=== PATIENT | female | born 1935 | race Caucasian/White ===

== ENCOUNTER 2017-05-12 12:04 | Outpatient (CLI) | payer MEDICARE, BC ==
[~2017-05-12] VITALS: Ht 163.8 cm; Wt 77.3 kg
--- NOTE | ~2017-05-12 | HEMODYNAMI ---
PATIENT:VIOLET FALCON MEDICAL RECORD: [id number] : 35 LOCATION:[facility] ADMISSION DATE: 05/12/17 Generatedon:05/12/201714:04 Patient name: VIOLET FALCON Patient #: [id number] SSN: DO B: 1935 Date of study: 05/12/2017 Page: Of Hemodynamic Procedure Report Patient Data Patient Demographics Procedure consent was obtained First Name: VIOLET Gender: Female Last Name: TERRIE : 1935 [facility] Initial: R Age: 81 year(s) Patient #: [id number] Race: Unknown Additional ID: [id number] Contact details Address: [address] [place] [address] [facility] State: [place] City: [place] Zip code: [address] Past Medical History Allergies: No known allergies Admission Admission Data Admission Date: 05/12/2017 Admission Time: 12:04 Procedure Procedure Types Cath Procedure Miscellaneous Procedures Moderate Sedation up to 45 minutes Peripheral Cath Diagnostic Procedure Cath Peripheral Oaoxm-Ioaekog-Ges-Off Peripheral vascular Intervention Stent Stent-Fem/Popw/plasty Procedure Description Procedure Date Procedure Date: 05/12/2017 Procedure Start Time: 13:13 Procedure End Time: 14:00 Procedure Staff Name Function Sohail Ryan MD Performing Physician Carline Trimble RT Scrub Deuce Gallagher RT Scrub Terrance Baker RN Nurse Vanessa Short RT Monitor Umer Pérez RN Clay Grinder Procedure Data Cath Procedure Fluoroscopy Diagnostic fluoroscopy Total fluoroscopy Time: time: 11.9 min 11.9 min Diagnostic fluoroscopy Total fluoroscopy dose: 223 dose: 223 mGy mGy Contrast Material Contrast Material Type Amount (ml) Isovue 300 118 Entry Location Entry Primary Successful Side Size Upsize Upsize Entry Closure Huerta ccessful Closure Location (Fr) 1 (Fr) 2 (Fr) Remarks Device Remarks Femoral Right 5 Fr 6 Fr 6 Fr Mechanical artery Long Short Compression Estimated blood loss: 10 ml Diagnostic catheters Device Type Used For End Catheter Placement Cordis Tempo 5Fr UF Abdominal catheter aortogram with runoff Procedure Complications No complications Procedure Medications Medication Administration Route Dosage 0.9% NaCl I.V. 100 ml/hr Oxygen NC 2 l/min Heparin Flush Bag added to field 2 bags (1000units/500ml NS) Versed I.V. 0.5 mg Fentanyl I.V. 25 mcg Versed I.V. 0.5 mg Fentanyl I.V. 25 mcg Heparin Bolus I.V. 7000 units Versed I.V. 0.5 mg Fentanyl I.V. 50 mcg Versed I.V. 0.5 mg Plavix P.O. 600 mg Versed I.V. 0.5 mg Hemodynamics Rest Heart Rate: 69 (bpm) Snapshots Pre Cath Intra NCS Post Cath Vital Signs Time Heart Resp SPO2 etCO2 [id number] NIBP (mmHg) Rhythm Pain Sedation Rate (ipm) (%) (mmHg) (mmHg) Status Level (bpm) 12:56:59 69 20 98 0 0 142/91(106) NSR 0 (11) 10(A) , No pain 13:01:44 67 14 96 0 0 159/63(126) NSR 0 (11) 10(A) , No pain 13:07:18 66 16 97 0 0 165/66(124) NSR 0 (11) 10(A) , No pain 13:12:05 67 15 97 0 0 162/67(119) NSR 0 (11) 10(A) , No pain 13:16:53 63 14 97 0 0 136/56(112) NSR 0 (11) 9(A) , No pain 13:21:38 64 23 97 0 0 152/60(111) NSR 0 (11) 9(A) , No pain 13:26:21 66 15 97 0 0 147/65(114) NSR 0 (11) 9(A) , No pain 13:31:05 65 14 97 0 0 154/68(116) NSR 0 (11) 9(A) , No pain 13:35:52 65 18 96 0 0 143/59(115) NSR 0 (11) 9(A) , No pain 13:40:39 65 16 96 0 0 151/56(118) NSR 0 (11) 9(A) , No pain 13:45:23 63 15 96 0 0 150/61(124) NSR 0 (11) 9(A) , No pain 13:50:08 59 15 95 0 0 136/57(108) NSR 0 (11) 9(A) , No pain 13:54:51 57 15 96 0 0 130/58(104) NSR 0 (11) 9(A) , No pain 13:59:34 60 15 97 0 0 141/63(110) NSR 0 (11) 10(A) , No pain Medications Time Medication Route Dose Verified Delivered Reason Notes Effectiveness by by 13:00:35 0.9% NaCl I.V. 100 Terrance Terrance Per physician ml/hr Samuel Baker RN RN 13:01:23 Oxygen NC 2 Terrance Terrance Per physician l/min Samuel Baker RN RN 13:02:12 Heparin Flush added 2 Terrance Terrance used for Bag to bags Samuel Baker procedure (1000units/500ml field RN RN NS) 13:07:09 Versed I.V. 0.5 Terrance Terrance for sedation mg Samuel Baker RN RN 13:07:23 Fentanyl I.V. 25 Terrance Terrance for sedation mcg Samuel Baker RN RN 13:11:38 Versed I.V. 0.5 Terrance Terrance for sedation mg Samuel Baker RN RN 13:12:00 Fentanyl I.V. 25 Terrance Terrance for sedation mcg Samuel Baker RN RN 13:31:16 Heparin Bolus I.V. 7,000 Terrance Terrance for units Samuel Baker anticoagulation RN RN 13:33:13 Versed I.V. 0.5 Terrance Terrance for sedation mg Samuel Baker RN RN 13:45:10 Fentanyl I.V. 50 Terrance Terrance for sedation mcg Samuel Baker RN RN 13:54:31 Versed I.V. 0.5 Terrance Terrance for sedation mg Samuel Baker RN RN 13:58:40 Plavix P.O. 600 Terrance Terrance for mg Samuel Baker antiplatelet RN RN therapy 13:59:54 Versed I.V. 0.5 Terrance Terrance for sedation mg Samuel Baker RN graphics intern Log Time Note 12:34:57 Procedure type changed to Cath procedure, Miscellaneous Procedures, Moderate Sedation up to 45 minutes, Peripheral Cath Diagnostic Procedure, Cath Peripheral, Pidmi-Wirjmqz-Atr-Off, Peripheral vascular Intervention, Stent, Stent-Fem/Popw/plasty 12:35:11 Time tracking: Regular hours 12:35:16 Plan of Care:Hemodynamics will remain stable., Cardiac rhythm will remain stable., Comfort level will be maintained., Respiratory function will remain adequate., Patient/ family verbilizes understanding of procedure., Procedure tolerated without complication., Recovers from procedure without complications.. 12:38:43 Umer Pérez RN sent for patient. Start room use. 12:50:44 Patient received from Pre/Post Procedure Room to CCL 1 Alert and oriented. Tansferred to table in Supine position. 12:50:44 Warm blankets applied, and kevyn hugger turned on for patient comfort. 12:50:45 Correct patient and procedure confirmed by team. 12:50:46 Signed procedure consent form obtained from patient. 12:50:47 ECG and BP/O2 sat monitors applied to patient. 12:50:48 Full Disclosure recording started 12:56:06 Vital chart was started 12:59:53 Baseline sample Acquired. 13:00:17 H&P Date Dictated: 04/18/2017 Within 30 days and on chart., H&P Addendum completed by physician on day of procedure. (MUST COMPLETE FOR ALL OUTPATIENTS). 13:00:18 Pre-procedure instructions explained to patient. 13:00:18 Pre-op teaching completed and patient verbalized understanding. 13:00:20 Family in patients room. 13:00:24 Rhythm: sinus rhythm 13:00:28 Patient NPO since Midnight. 13:00:35 0.9% NaCl 100 ml/hr I.V. was administered by Terrance Baker RN; Per physician; 13:00:35 Patient allergic to No known allergies 13:00:37 Is the patient allergic to Iodine/contrast media? No. 13:00:38 Is patient on blood thinner?No 13:00:41 Patient diabetic? No. 13:00:43 Previous problem with sedation/anesthesia? No ? 13:00:44 Snore? Yes 13:00:45 Sleep apnea? No 13:00:46 Deviated septum? No 13:00:47 Opens mouth fully? Yes 13:00:47 Sticks out tongue? Yes 13:00:49 Airway obstruction? No ? 13:00:51 Dentures? No ? 13:00:54 Pre procedure: right dorsailis pedis pulse 1+ Palpable, but thready & weak; easily obliterated 13:00:56 Pre procedure: left dorsailis pedis pulse 2+ Normal; easily identifiable; not easily obliterated 13:00:59 Patient pain scale 0/10 ?. 13:01:08 IV patent on arrival in right forearm with 0.9% NaCl at [facility]. 13:01:12 Lab results completed and on chart. 13:01:15 Bilateral groins area was prepped with chlora-prep and draped in sterile fashion 13:01:16 Alarms reviewed by R. N. 13:01:16 Sharps counted by scrub and verified by R.N. 13:01:20 Acist Syringe opened to sterile field. 13:01:20 Bag Decanter opened to sterile field. 13:01:21 Medline Cath Pack opened to sterile field. 13:01:21 Terumo 5Fr [place] Sheath opened to sterile field. 13:01:22 St Rickey 260cm J .035 wire opened to sterile field. 13:01:23 Oxygen 2 l/min NC was administered by Terrance Baker RN; Per physician; 13:01:23 Acist Hand Control opened to sterile field. 13:01:23 Acist Manifold opened to sterile field. 13:01:24 Tegaderm 4 x 4 opened to sterile field. 13:02:12 Heparin Flush Bag (1000units/500ml NS) 2 bags added to field was administered by Terrance Baker RN; used for procedure; 13:03:39 Final Timeout: patient, procedure, and site verified with staff and physician. All members of the team are in agreement. 13:03:43 Right groin site verified by team. 13:03:46 Physical assessment completed. ASA score P 2 - A patient with mild systemic disease as per Sohail Ryan MD. 13:03:50 Sedation plan: IV Moderate Sedation Versed, Fentanyl 13:05:21 Zero performed for pressure channel P1 13:07:09 Versed 0.5 mg I.V. was administered by Terrance Baker RN; for sedation; 13:07:23 Fentanyl 25 mcg I.V. was administered by Terrance Baker RN; for sedation; 13:11:38 Versed 0.5 mg I.V. was administered by Terrance Lorigan RN; for sedation; 13:12:00 Fentanyl 25 mcg I.V. was administered by Terrance Baker RN; for sedation; 13:13:45 Procedure started. 13:13:57 Local anesthetic to right femoral artery with Lidocaine 2% by Sohail Ryan MD.INITIAL ACCESS ONLY 13:18:33 A 5 Fr sheath was inserted into the Right Femoral artery 13:19:43 A Cordis Tempo 5Fr UF catheter was advanced over the wire and used for Abdominal aortogram with runoff. 13:23:00 Terumo Super Stiff Angled 260cm glide wire opened to sterile field. 13:23:13 Terumo TORQUE DEVICE PLASTIC .038 opened to sterile field. 13:23:43 SS glide wire advanced. 13:25:25 Catheter exchanged over wire. 13:25:37 Terumo 6Fr [place] Destination Sheath opened to sterile field. 13:25:37 Merit BasixCompak Inflation Kit opened to sterile field. 13:25:50 Sheath upsized to a 6 Fr Long. 13:31:16 Heparin Bolus 7,000 units I.V. was administered by Terrance Baker RN; for anticoagulation; 13:33:13 Versed 0.5 mg I.V. was administered by Terrance Baker RN; for sedation; 13:33:38 Inflation number: 1 A Cordis Powerflex Pro 5.0 x 40 x 135cm balloon was prepped and advanced across the Mid Superficial Femoral, Left, then inflated to 9 DAVE for 2:09 (min:sec). 13:37:36 Inflation number: 2 The Cordis Powerflex Pro 5.0 x 40 x 135cm balloon was reinflated across the Mid Superficial Femoral, Left, to 8 DAVE for 1:22 (min:sec). 13:40:58 Balloon removed over the wire. 13:43:18 Cordis SMART 6 X 80 X 120 stent was deployed across Mid Superficial Femoral, Left . 13:43:20 Stent catheter was removed intact over wire. 13:45:10 Fentanyl 50 mcg I.V. was administered by Terrance Baker RN; for sedation; 13:46:20 Inflation number: 3 A Cordis Powerflex Pro 5.0 X 80 X 135 balloon was prepped and advanced across the Mid Superficial Femoral, Left, then inflated to 6 DAVE for 0:39 (min:sec). 13:47:36 Inflation number: 4 The Cordis Powerflex Pro 5.0 X 80 X 135 balloon was reinflated across the Mid Superficial Femoral, Left, to 10 DAVE for 1:06 (min:sec). 13:48:45 Balloon removed over the wire. 13:52:15 Terumo 6Fr Rich[place] Sheath opened to sterile field. 13:52:54 Sheath upsized to a 6 Fr Short. 13:52:59 Sheath removed intact; hemostasis achieved with Mechanical Compression to the Right Femoral artery. 13:53:07 Procedure ended.(Physican Out) 13:53:11 Fluoroscopy time 11.90 minutes. 13:53:15 Flurop Dose total: 223 13:53:15 Fluoroscopy dose: 223 mGy 13:53:29 Contrast amount:Isovue 300 118ml. 13:53:31 Sharps counted by scrub and verified by R.N. 13:54:31 Versed 0.5 mg I.V. was administered by Terrance Baker RN; for sedation; 13:55:25 Insertion/operative site no bleeding no hematoma. 13:55:27 Post-op/insertion site Right Femoral artery dressed using a 4 x 4 and Tegaderm. 13:55:32 Post right femoral artery:stable, clean and dry 13:55:35 Post Procedure Pulses reassessed and unchanged 13:55:38 Post-procedure physical assessment completed. ASA score P 2 - A patient with mild systemic disease as per Sohail Ryan MD. 13:55:43 Post procedure rhythm: unchanged. 13:55:50 Estimated blood loss: 10 ml 13:55:52 Post procedure instruction explained to patient.Patient verbalizes understanding. 13:55:53 Patient needs reinforcement of post procedure teaching. 13:55:59 Procedure Complication : No complications 13:56:01 See physician's report for complete and final results. 13:56:18 Cordis 6Fr Exoseal opened to sterile field. 13:56:58 Procedure and supply charges have been captured, reviewed, submitted and are correct. 13:58:40 Plavix 600 mg P.O. was administered by Terrance Baker RN; for antiplatelet therapy; 13:59:32 St Rickey Femstop Arch Gold opened to sterile field. 13:59:39 Post right femoral artery:oozing 13:59:46 Femstop placed over the right femoral artery at 160 mmHg. Hemostasis achieved. 13:59:54 Versed 0.5 mg I.V. was administered by Terrance Baker RN; for sedation; 14:00:29 Vital chart was stopped 14:00:32 Report given to Pre/Post Procedure Room. 14:00:35 Patient transfered to Pre/Post Procedure Room with Stretcher. 14:00:36 Procedure ended. 14:00:36 Full Disclosure recording stopped 14:00:45 End room use (Document Last) Intervention Summary Intervention Notes Time ActionType Lesion and Equipment Action# Pressure Duration Attributes Used 13:33:38 Inflate Mid Cordis 1 9 02:09 balloon Superficial Powerflex Femoral, Pro 5.0 x Left 40 x 135cm balloon 13:37:36 Reinflate Mid Cordis 2 8 01:22 balloon Superficial Powerflex Femoral, Pro 5.0 x Left 40 x 135cm balloon 13:43:18 Deploy self Mid Cordis 1 expanding Superficial SMART 6 X stent Femoral, 80 X 120 Left stent 13:46:20 Inflate Mid Cordis 3 6 00:40 balloon Superficial Powerflex Femoral, Pro 5.0 X Left 80 X 135 balloon 13:47:36 Reinflate Mid Cordis 4 10 01:06 balloon Superficial Powerflex Femoral, Pro 5.0 X Left 80 X 135 balloon Device Usage Item Name Manufacture Quantity Catalog Hospital Part Current Minimal L ot# / Number Charge Number Stock Stock Serial# Code Acist Acist 1 [id number] 20 Syringe Medical Systems Inc Bag Microtek 1 2002S 574333 90994 [id number] 5 Fusion Smoothies Inc. Medline Cardinal 1 [id number] 293364 04976 942854 5 Cath Pack Health Terumo 5Fr Terumo 1 [id number] 285135 365725 [address] St Rickey 1 073626 106457 777156 847814 30 260cm J .035 wire Acist Hand Acist 1 72044 765313 714533 771276 5 Control Medical Systems Inc Acist Acist 1 26924 202777 751291 803933 5 Manifold Medical Systems Inc Tegaderm 4 3M 1 1626W 377338 934493 924761 5 x 4 Cordis Cardinal 1 [id number] 969389 020872 578794 10 Tempo 5Fr Health UF catheter Terumo Terumo 1 [id number] 570826 567232 458475 5 Super Stiff Angled 260cm glide wire Terumo [place] 1 TD01 932879 039832 023362 5 TORQUE Scientific DEVICE PLASTIC .038 Terumo 6Fr Terumo 1 RSR01 472271 91594 620926 5 Richwood Destination Sheath Merit Merit 1 [id number] 074517 955119 658014 15 ZumperixMolecule SynthctEasySize Medical Inflation Kit Cordis Cardinal 1 [id number] 865893 401377 138738 5 Powerflex Health Pro 5.0 x 40 x 135cm balloon Cordis Cardinal 1 [id number] 865574 262042 0 1 [id number] SMART 6 X Health 80 X 120 stent Cordis Cardinal 1 [id number] 146095 372264 5 Powerflex Health Pro 5.0 X 80 X 135 balloon Terumo 6Fr Terumo 1 [id number] 197290 133220 439656 40 [place] Sheath Cordis 6Fr Cardinal 1 EX600 681096 286042 283199 [address] Rickey 1 [id number] 852851 322686 161999 5 Femstop Arch Gold Signature Audit [place] Stage Time Signature Unsigned Intra-Procedure 05/12/2017 Vanessa 2:04:47 PM Counts RT(R) Signatures Monitor : Vanessa Signature : Counts RT Date : Time : [id number] [place] [address]
[2017-05-12] MEDS ORDERED: BAYER CHEWABLE81 MG PO (12:12)
[2017-05-12] MEDS ORDERED: LEVOXYL75 MCG PO (12:12)
[2017-05-12] MEDS ORDERED: DIOVAN HCT 320/1 TA2 PO (12:13)
[2017-05-12] MEDS ORDERED: TOPROL XL200 MG PO (12:13)
[2017-05-12] MEDS ORDERED: NIFEDIPINE ER30 MG PO (12:13)
[2017-05-12] MEDS ORDERED: NEXIUM40 MG PO (12:14)
[2017-05-12 12:23] VITALS: BP 171/59; Ht 163.8 cm; Wt 77.3 kg
[2017-05-12 12:49] LABS: ANION GAP 16.4 mmol/L (8-16); CREATININE - SERUM 1.4 mg/dL (0.6-1.3); POTASSIUM - SERUM 4.4 mmol/L (3.5-5.1)
[2017-05-12] MEDS ORDERED: PLAVIX75 MG PO (14:15)
--- NOTE | 2017-05-12 14:27 | NUR ---
RECIEVED TO ROOM VIA STRETCHER WITH FEMSTOP TO R/GROIN CDI PRESSURE AT 160. REPORTS OF ONE STENT TO THE [facility].
--- NOTE | 2017-05-12 14:30 | NUR ---
1430 VSS WITH CHEST PAIN DENIED. FEMSTOP TO R/GROIN AT 160 PRESSURE. INSTRUCTED PATIENT TO KEEP HEAD FLAT ON PILLOW WITH RLE STRAIGHT VSS
--- NOTE | 2017-05-12 14:52 | NUR ---
VSS WITH CHEST PAIN DENIED FEMSTOP REMAINS TO R/GROIN AT 160
--- NOTE | 2017-05-12 15:39 | NUR ---
PRESSURE TO FEMSTOP RELEASED TO 120 NO BLEEDING AT SITE.
--- NOTE | 2017-05-12 15:52 | NUR ---
PRESSURE LET OFF FEMSTOP SLOWLY WITH NO BLEEDING NOTED. REMAINS IN PLACE WILL MONITOR
--- NOTE | 2017-05-12 16:28 | NUR ---
RESTING QUIETLY WITH FEMSTOP IN PLACE NO PRESSURE AT SITE CHEST PAIN IS DENIED WITH VSS
--- NOTE | 2017-05-12 16:41 | NUR ---
PATIENT MOVING ABOUT RESTLESS INSTRUCTED PATIENT TO KEEP HEAD FLAT ON PILLOW WITH RLE STRAIGHT
--- NOTE | 2017-05-12 16:59 | NUR ---
R/GROIN CDI NO BLEEDING NO HEMATOMA NOTED FEMSTOP OFF WITH VSS. DAUGHTER AT BEDSIDE VERBAL AND WRITTEN DISCHARGE GONE OVER WITH FAMILY.
--- NOTE | 2017-05-12 17:28 | NUR ---
REPOSITIONED TO SITTING WITH HOB UP 45 DEGREES. CHEST PAIN IS DENIED R/GROIN CDI NO BLEEDING NO HEMATOMA NOTED. PIV REMOVED WITH DRESSING APPLIED
--- NOTE | 2017-05-12 17:38 | NUR ---
PATIENT DRESSED AND READY FOR DISCHARGE R/GROIN CDI WITH CHEST PAIN DENIED. LEFT VIA WC TO PARKING FOR TRANSPORT HOME
== END 2017-05-12 17:52 ==
LOC: D.CATH 12:04
PROVIDERS: Internal Medicine Cardiovascular Disease
DX: I70.213 Atherosclerosis of native arteries of extremities with intermittent claudication, bilateral legs (principal); I10 Essential (primary) hypertension; E78.5 Hyperlipidemia, unspecified; Z01.812 Encounter for preprocedural laboratory examination

== ENCOUNTER → 2017-07-02 10:34 | Outpatient (CLI) | payer MEDICARE, BC ==
--- NOTE | ~2017-07-02 | HEMODYNAMI ---
PATIENT:VIOLET FALCON MEDICAL RECORD: [id number] : 35 LOCATION:[facility] ADMISSION DATE: 07/02/17 Generatedon:07/02/201714:18 Patient name: VIOLET FALCON Patient #: [id number] SSN: DO B: 1935 Date of study: 07/02/2017 Page: Of Hemodynamic Procedure Report Patient Data Patient Demographics Procedure consent was obtained First Name: VIOLET Gender: Female Last Name: TERRIE : 1935 Middle Initial: R Age: 82 year(s) Patient #: [id number] Race: Unknown Additional ID: [id number] Contact details Address: [address] [place] [address] [employer] [facility] State: [place] City: [place] Zip code: [address] Past Medical History Allergies: No known allergies Admission Admission Data Admission Date: 07/02/2017 Admission Time: 10:34 Procedure Procedure Types Cath Procedure Peripheral Cath Diagnostic Procedure Abd/Extremity Extremities Right Lower Ext Arterio Peripheral vascular Intervention Atherectomy Atherectomy Fem/Pop w/Plasty Procedure Description Procedure Date Procedure Date: 07/02/2017 Procedure Start Time: 13:22 Procedure End Time: 14:17 Procedure Staff Name Function Sohail Ryan MD Performing Physician Carline Trimble RT Scrub Carolyn Castro RN Nurse Deuce Gallagher RT Monitor Umer Pérez RN Nurse Procedure Data Cath Procedure Fluoroscopy Diagnostic fluoroscopy Total fluoroscopy Time: 15 time: 15 min min Diagnostic fluoroscopy Total fluoroscopy dose: 256 dose: 256 mGy mGy Contrast Material Contrast Material Type Amount (ml) Isovue 300 38 Entry Location Entry Primary Successful Side Size Upsize Upsize Entry Closure Huerta ccessful Closure Location (Fr) 1 (Fr) 2 (Fr) Remarks Device Remarks Femoral Left 6 Fr 6 Fr 6 Fr Exoseal artery Short Long Short Femoral Left 5 Fr Manual vein Compression Estimated blood loss: 10 ml Diagnostic catheters Device Type Used For End Catheter Placement Diagnostic Infinity 5Fr Procedure IM catheter Procedure Complications No complications Procedure Medications Medication Administration Route Dosage Oxygen NC 2 l/min Heparin Flush Bag added to field 2 bags (1000units/500ml NS) 0.9% NaCl I.V. 100 ml/hr Fentanyl I.V. 50 mcg Versed I.V. 1 mg Viperslide Mix(5mg added to field 1 bags Verapamil/5mg Nitro/20cc Viperslide/100cc Bag NS) Fentanyl I.V. 50 mcg Versed I.V. 1 mg Heparin Bolus I.V. 7000 units Hemodynamics Rest Heart Rate: 56 (bpm) Snapshots Pre Cath Intra NCS Post Cath Vital Signs Time Heart Resp SPO2 etCO2 NIBP (mmHg) Rhythm Pain Sedation Rate (ipm) (%) (mmHg) Status Level (bpm) 13:07:02 58 20 97 0 159/68(138) NSR 0 (11) 10(A) , No pain 13:12:12 73 21 98 0 164/78(128) NSR 0 (11) 10(A) , No pain 13:16:38 64 11 96 0 172/63(120) NSR 0 (11) 10(A) , No pain 13:21:02 57 14 90 0 128/58(111) NSR 0 (11) 10(A) , No pain 13:25:18 62 21 99 27.9 134/59(113) NSR 0 (11) 9(A) , No pain 13:29:32 56 16 100 29.4 150/66(120) NSR 0 (11) 9(A) , No pain 13:33:40 56 18 98 0 115/57(91) NSR 0 (11) 9(A) , No pain 13:37:52 53 18 97 6 101/53(81) NSR 0 (11) 9(A) , No pain 13:42:00 53 17 98 11.3 117/51(91) NSR 0 (11) 9(A) , No pain 13:46:11 56 17 98 0 108/44(69) NSR 0 (11) 9(A) , No pain 13:50:24 54 17 98 9.8 94/45(71) NSR 0 (11) 9(A) , No pain 13:54:33 56 17 97 9.8 107/39(86) NSR 0 (11) 9(A) , No pain 13:58:43 57 18 97 11.3 116/54(91) NSR 0 (11) 9(A) , No pain 14:02:53 57 18 97 27.9 132/58(97) NSR 0 (11) 9(A) , No pain 14:07:12 58 17 97 24.1 131/53(96) NSR 0 (11) 9(A) , No pain 14:11:27 57 18 98 28.6 121/60(100) NSR 0 (11) 9(A) , No pain 14:15:37 57 13 98 29.4 129/62(83) NSR 0 (11) 9(A) , No pain Medications Time Medication Route Dose Verified Delivered Reason Notes Effectiveness by by 13:12:53 Oxygen NC 2 Sohail Umer l/min Connor Pérez RN 13:13:18 Heparin Flush added 2 Sohail Umer used for Bag to bags Connor Pérez RN procedure (1000units/500ml field NS) 13:13:29 0.9% NaCl I.V. 100 Sohail Umer Per physician ml/hr Connor Pérez RN 13:21:42 Fentanyl I.V. 50 Sohail Umer for sedation mcg Connor Pérez RN 13:21:48 Versed I.V. 1 mg Sohail Umer for sedation Connor Pérez RN 13:23:31 Viperslide added 1 Sohail Umer used for Mix(5mg to bags Connor Pérez RN procedure Verapamil/5mg field Nitro/20cc Viperslide/100cc Bag NS) 13:29:22 Fentanyl I.V. 50 Sohail Umer for sedation mcg Connor Pérez RN 13:29:27 Versed I.V. 1 mg Sohail Umer for sedation Connor Pérez RN 13:33:49 Heparin Bolus I.V. 7000 Sohail Umer for units Connor Pérez RN anticoagulation Procedure Log Time Note 12:45:13 Deuce Gallagher RT(R) sent for patient. Start room use. 13:01:14 Time tracking: Regular hours 13:01:18 Plan of Care:Hemodynamics will remain stable., Cardiac rhythm will remain stable., Comfort level will be maintained., Respiratory function will remain adequate., Patient/ family verbilizes understanding of procedure., Procedure tolerated without complication., Recovers from procedure without complications.. 13:02:10 Patient received from Pre/Post Procedure Room to CCL 1 Alert and oriented. Tansferred to table in Supine position. 13:02:11 Warm blankets applied, and kevyn hugger turned on for patient comfort. 13:02:12 Correct patient and procedure confirmed by team. 13:02:13 Signed procedure consent form obtained from patient. 13:02:14 ECG and BP/O2 sat monitors applied to patient. 13:05:47 Vital chart was started 13:05:48 Baseline sample Acquired. 13:05:51 Rhythm: sinus rhythm 13:05:52 Full Disclosure recording started 13:06:25 H&P Date Dictated: 06/20/2017 Within 30 days and on chart., H&P Addendum completed by physician on day of procedure. (MUST COMPLETE FOR ALL OUTPATIENTS). 13:06:27 Pre-procedure instructions explained to patient. 13:06:27 Pre-op teaching completed and patient verbalized understanding. 13:06:31 Family in patients room. 13:06:32 Patient NPO since Midnight. 13:06:34 Is the patient allergic to Iodine/contrast media? No. 13:06:35 Is patient on blood thinner?Yes 13:06:38 ACC The patient was administered the following blood thiners within the last 24 hours: ACCPlavix 13:07:02 Patient diabetic? No. 13:12:53 Oxygen 2 l/min NC was administered by Umer Pérez RN; ; 13:13:18 Heparin Flush Bag (1000units/500ml NS) 2 bags added to field was administered by Umer Pérez RN; used for procedure; 13:13:29 0.9% NaCl 100 ml/hr I.V. was administered by Umer Pérez RN; Per physician; 13:13:58 Previous problem with sedation/anesthesia? No ? 13:13:59 Snore? Yes 13:14:00 Sleep apnea? No 13:14:01 Deviated septum? No 13:14:02 Opens mouth fully? Yes 13:14:02 Sticks out tongue? Yes 13:14:04 Airway obstruction? No ? 13:14:05 Dentures? No ? 13:14:08 Pre procedure: left dorsailis pedis pulse 1+ Palpable, but thready & weak; easily obliterated 13:15:35 Patient pain scale 0/10 ?. 13:15:41 IV patent on arrival in left forearm with 0.9% NaCl at [facility]. 13:15:43 Lab results completed and on chart. 13:15:47 Left groin area was prepped with chlora-prep and draped in sterile fashion 13:15:48 Alarms reviewed by R. N. 13:15:48 Sharps counted by scrub and verified by R.N. 13:15:49 --------ALL STOP TIME OUT------ 13:15:49 Final Timeout: patient, procedure, and site verified with staff and physician. All members of the team are in agreement. 13:15:52 Left groin site verified by team. 13:15:55 Physical assessment completed. ASA score P 2 - A patient with mild systemic disease as per Sohail Ryna MD. 13:15:58 Sedation plan: IV Moderate Sedation Versed, Fentanyl 13:16:13 Use device set Femoral PCI 13:16:14 Tegaderm 4 x 4 opened to sterile field. 13:16:15 Acist Manifold opened to sterile field. 13:16:16 Acist Syringe opened to sterile field. 13:16:17 Acist Hand Control opened to sterile field. 13:16:17 Bag Decanter opened to sterile field. 13:16:17 Medline Cath Pack opened to sterile field. 13:16:18 Terumo 6Fr Bolckow Sheath opened to sterile field. 13:16:19 St Rickey 260cm J .035 wire opened to sterile field. 13:16:19 Merit BasixCompak Inflation Kit opened to sterile field. 13:17:00 Terumo ANGLE 260cm glide wire opened to sterile field. 13:17:05 Terumo 6Fr Bolckow Destination Sheath opened to sterile field. 13:17:12 VIPER .014 335 CM guide wire opened to sterile field. 13:17:26 Diamondback 360 1.50 SOLID Atherectomy catheter opened to sterile field. 13:17:53 Cook 18G 7cm Percutaneous Entry needle opened to sterile field. 13:21:42 Fentanyl 50 mcg I.V. was administered by Umer Pérez RN; for sedation; 13:21:48 Versed 1 mg I.V. was administered by Umer Pérez RN; for sedation; 13:22:04 Procedure started. 13:22:09 Local anesthetic to left femerol artery with Lidocaine 2% by Sohail Ryan MD.INITIAL ACCESS ONLY 13:23:31 Viperslide Mix(5mg Verapamil/5mg Nitro/20cc Viperslide/100cc Bag NS) 1 bags added to field was administered by Umer Pérez RN; used for procedure; 13:27:28 Terumo 5Fr Bolckow Sheath opened to sterile field. 13:27:48 A 5 Fr sheath was inserted into the Left Femoral vein 13:28:06 Baseline sample Acquired. 13:28:18 A 6 Fr Short sheath was inserted into the Left Femoral artery 13:28:30 A Diagnostic Infinity 5Fr IM catheter was advanced over the wire and used for Procedure. 13:28:39 Jenkins wire advanced. 13:29:22 Fentanyl 50 mcg I.V. was administered by Umer Pérez RN; for sedation; 13:29:25 Wire advanced around the horn and down the Right SFA. 13:29:27 Versed 1 mg I.V. was administered by Umer Pérez RN; for sedation; 13:31:03 Terumo TORQUE DEVICE PLASTIC .038 opened to sterile field. 13:31:27 Catheter exchanged over wire. 13:31:36 Sheath upsized to a 6 Fr Long. 13:33:49 Heparin Bolus 7000 units I.V. was administered by Umer Pérez RN; for anticoagulation; 13:35:58 Viper wire advanced. 13:37:18 Wire advanced across lesion. 13:40:34 Diamondback advanced. 13:45:50 Multiple passes made to the mid and distal right SFA with the diamondback at low, med, and high.. 13:56:57 Diamondback removed over the wire. 13:59:31 Inflation number: 1 A Saber 5.0 X 150 X 150 balloon was prepped and advanced across the Mid Superficial Femoral, Right, then inflated to 5 DAVE for 1:30 (min:sec). 13:59:51 Multiple inflations made at 5 Atms. 14:06:26 Balloon removed over the wire. 14:06:26 Wire removed. 14:06:38 Sheath upsized to a 6 Fr Short. 14:06:47 Cordis 6Fr Exoseal opened to sterile field. 14:07:43 Sheath removed intact; hemostasis achieved with Exoseal to the Left Femoral artery. 14:07:46 Procedure ended.(Physican Out) 14:10:13 Sheath removed intact; hemostasis achieved with Manual Compression to the Left Femoral vein. 14:10:19 Fluoroscopy time 15.00 minutes. 14:10:24 Fluoroscopy dose: 256 mGy 14:10:24 Flurop Dose total: 256 14:11:01 Contrast amount:Isovue 300 38ml. 14:11:03 Sharps counted by scrub and verified by R.N. 14:11:06 Insertion/operative site no bleeding no hematoma. 14:11:10 Post-op/insertion site Left Femoral artery dressed using a 4 x 4 and Tegaderm. 14:11:11 Post Procedure Pulses reassessed and unchanged 14:11:14 Post-procedure physical assessment completed. ASA score P 2 - A patient with mild systemic disease as per Sohail Ryan MD. 14:11:16 Post procedure rhythm: unchanged. 14:11:19 Estimated blood loss: 10 ml 14:11:21 Post procedure instruction explained to patient.Patient verbalizes understanding. 14:11:21 Patient needs reinforcement of post procedure teaching. 14:13:00 Procedure type changed to Cath procedure, Peripheral Cath Diagnostic Procedure, Abd/Extremity, Extremities, Right Lower Ext Arterio, Peripheral vascular Intervention, Atherectomy, Atherectomy Fem/Pop w/Plasty 14:13:03 Procedure Complication : No complications 14:15:29 Procedure and supply charges have been captured, reviewed, submitted and are correct. 14:17:15 Vital chart was stopped 14:17:15 See physician's report for complete and final results. 14:17:18 Report given to Pre/Post Procedure Room. 14:17:33 Patient transfered to Pre/Post Procedure Room with Stretcher. 14:17:35 Procedure ended. 14:17:35 Full Disclosure recording stopped 14:17:41 End room use (Document Last) Intervention Summary Intervention Notes Time ActionType Lesion and Equipment Action# Pressure Duration Attributes Used 13:59:31 Inflate Mid Saber 5.0 1 5 01:30 balloon Superficial X 150 X Femoral, 150 Right balloon Device Usage Item Name Manufacture Quantity Catalog Number Hospital Part Current Minimal Lot# / Charge Number Stock Stock Serial# Code Tegaderm 4 x 3M 1 1626 478397 979480 298411 5 4 Acist Acist Medical 1 53894 013589 598674 880985 5 Manifold Systems Inc Acist Acist Medical 1 01103 199089 973347 968281 20 Syringe Systems Inc Acist Hand Acist Medical 1 22173 208718 214983 986761 5 Control Systems Inc Bag Decanter Microtek 1 2002S 569744 31655 557950 5 Medical Inc. Medline Cath Cardinal 1 [id number] 321188 64052 011322 5 Pack Health Terumo 6Fr Terumo 1 [id number] 724538 569988 761277 [address] St Rickey 1 [id number] 846923 090361 668672 30 260cm J .035 wire [facility] 1 [id number] 903053 557311 247959 15 BasixCompak Inflation Kit Terumo ANGLE Terumo 1 [id number] 422656 891788 051888 5 260cm glide wire Terumo 6Fr Terumo 1 RSR01 918929 33815 067353 5 Bolckow Destination Sheath VIPER .014 Cardiovascular 1 [id number] 977648 007263 5 335 CM guide systems wire Diamondback Cardiovascular 1 [id number] 870532 129506 5 360 1.50 systems SOLID Atherectomy catheter Cook 18G 7cm Cook [facility] 1 [id number] 747284 48792 254870 5 Percutaneous Entry needle Terumo 5Fr Terumo 1 [id number] 308180 783510 546182 40 Bolckow Sheath Diagnostic Cardinal 1 [id number] 917194 964299 172890 5 Infinity 5Fr Health IM catheter Terumo Maxie 1 TD01 950586 366054 915302 5 TORQUE Scientific DEVICE PLASTIC .038 Saber 5.0 X Cardinal 1 [id number] 836477 944522 5 150 X 150 Health balloon Cordis 6Fr Cardinal 1 EX600 428423 803832 701785 10 [facility] Signature Audit [place] Stage Time Signature Unsigned Intra-Procedure 07/02/2017 Deuce Gallagher 2:18:12 PM RT(R) Signatures Monitor : Deuce Gallagher RT Signature : Date : Time : [place] [id number] [place] [address]
[~2017-07-02 10:34] MED LIST: BAYER CHEWABLE81 MG PO; DIOVAN HCT 320/1 TA2 PO; LEVOXYL75 MCG PO; NEXIUM40 MG PO; NIFEDIPINE ER30 MG PO; PLAVIX75 MG PO; TOPROL XL200 MG PO
[2017-07-02 10:55] VITALS: BP 171/44; BMI 28.8
[2017-07-02 11:15] LABS: BASOPHILS 0.6 % (0-2); EOSINOPHILS 4.3 % (0-7); HEMATOCRIT 41.8 % (36.0-48.0); IMMATURE GRANULOCYTES 0.1 % (0-5); LYMPHOCYTES 28.1 % (15-50); MCH 30.5 pg (26.0-34.0); MCHC 33.5 g/dL (31.0-37.0); MCV 91.1 fL (80.0-100.0); MONOCYTES 13.6 % (2-11); NEUTROPHILS 53.3 % (40-80); PLATELET COUNT 210 10x3/uL (130-400); RBC 4.59 10x6/uL (4.00-5.40); RDW 13.7 % (11.5-14.5); WBC 6.9 10x3/uL (4.8-10.8)
[2017-07-02 11:30] LABS: ANION GAP 15.8 mmol/L (8-16); CALCIUM 9.7 mg/dL (8.5-10.1); CARBON DIOXIDE 25.2 mmol/L (21.0-32.0); CREATININE - SERUM 1.5 mg/dL (0.6-1.3)
--- NOTE | 2017-07-02 14:30 | NUR ---
1430 RECIEVED TO ROOM VIA STRETCHER FROM PUNCH CARD OPERATOR WITH 6 FR EXOSEAL L/GROIN CDI NO BLEEDING NO HEMATOMA NOTED. REPORTS OF BALLOON TO THE R/SFA VSS WITH PAIN DENIED INSTRUCTED PATIENT TO KEEP HEAD FLAT ON PILLOW WITH LLE STRAIGHT
--- NOTE | 2017-07-02 14:45 | NUR ---
1445 VSS WITH L/GROIN CDI NO BLEEDING NO HEMATOMA NOTED. VSS WITH CHEST PAIN DENIED
--- NOTE | 2017-07-02 15:04 | NUR ---
RESTING QUIETLY WITH EYES CLOSED. NO DISTRESS L/GROIN REMAINS STABLE
--- NOTE | 2017-07-02 15:30 | NUR ---
L/GROIN CDI NO BLEEDING NO HEMATOMA NOTED. VSS WITH PAIN DENIED. SANDWICH AND SODA TO BEDSIDE FAMILY PRESENT TO ASSIST
--- NOTE | 2017-07-02 16:44 | NUR ---
PATIENT SLEEPING QUIETLY WITH NO DISTRESS NOTED. L/GROIN CDI NO BLEEDING NO HEMATOMA NOTED. FAMILY AT SIDE
--- NOTE | 2017-07-02 17:18 | NUR ---
L/GROIN REMAINS CDI WITH VSS. VERBAL AND WRITTEN DISCHARGE GONE OVER WITH PATIENT AND FAMILY ALL VERBALIZED UNDERSTANDING.
--- NOTE | 2017-07-02 17:47 | NUR ---
REPOSITIONED TO SITTING WITH HOB UP 30 DEGREES FOR COMFORT. L/GROIN CDI NO BLEEDING NO HEMATOMA NOTED. FAMILY AT SIDE
--- NOTE | 2017-07-02 18:01 | NUR ---
PIV REMOVED WITH DRESSING APPLIED. L/GROIN CDI WITH VSS AND CHEST PAIN DENIED.
--- NOTE | 2017-07-02 18:21 | NUR ---
L/GROIN REMAINS CDI NO BLEEDING NO HEMATOMA NOTED. PATIENT UP TO GET DRESSED FOR DISCHARGE. LEFT VIA WC TO PARKING FOR FAMILY TO DRIVE HOME
== END | disposition home or self-care (01) ==
LOC: D.CATH 10:34
PROVIDERS: Internal Medicine Cardiovascular Disease
DX: I70.211 Atherosclerosis of native arteries of extremities with intermittent claudication, right leg (principal); Z01.812 Encounter for preprocedural laboratory examination

== ENCOUNTER → 2018-01-07 10:25 | Outpatient (CLI) | payer MEDICARE, BC, MEDICAID ==
[~2018-01-07] VITALS: Ht 163.8 cm; Wt 74.5 kg
--- NOTE | ~2018-01-07 | HEMODYNAMI ---
PATIENT:VIOLET FALCON MEDICAL RECORD: [id number] : 35 LOCATION:[facility] ADMISSION DATE: 01/07/18 Generatedon:01/07/201814:02 Patient name: VIOLET FALCON Patient #: [id number] SSN: DO B: 1935 Date of study: 01/07/2018 Page: Of Hemodynamic Procedure Report Patient Data Patient Demographics Procedure consent was obtained First Name: VIOLET Gender: Female Last Name: TERRIE : 1935 Middle Initial: R Age: 82 year(s) Patient #: [id number] Race: Unknown Additional ID: [id number] Contact details Address: [address] [place] [address] [employer] [facility] State: [place] City: [place] Zip code: [address] Past Medical History Allergies: No known allergies Admission Admission Data Admission Date: 01/07/2018 Admission Time: 10:25 Admit Source: Other Lab Results Lab Result Date: 01/07/2018 Lab Result Time: 11:28 Biochemistry Name Units Result Min Max BUN mg/dl 31 --(----)-* 7 18 Creatinine mg/dl 1.5 --(----)-* 0.6 1.3 CBC Name Units Result Min Max Hematocrit % 39 *-(----)-- 42 54 Hemoglobin g/dl 13.4 -*(----)-- 13.5 17.5 Procedure Procedure Types Cath Procedure Diagnostic Procedure Sedation Charges Moderate Sedation up to 30 minutes Peripheral Cath Diagnostic Procedure Cath Peripheral Ywjqj-Qejwkls-Vqa-Off Peripheral vascular Intervention Angioplasty Angioplasty Fem/Pop Procedure Description Procedure Date Procedure Date: 01/07/2018 Procedure Start Time: 13:12 Procedure End Time: 14:01 Procedure Staff Name Function Sohail Napier MD Performing Physician Freddy Rascon RT Monitor Carolyn Castro RN Nurse Vanessa Short RT Scrub Procedure Data Cath Procedure Fluoroscopy Diagnostic fluoroscopy Total fluoroscopy Time: time: 10.4 min 10.4 min Diagnostic fluoroscopy Total fluoroscopy dose: 268 dose: 268 mGy mGy Contrast Material Contrast Material Type Amount (ml) Isovue 370 94 Entry Location Entry Primary Successful Side Size Upsize 1 Upsize Entry Closure Successful Closure Location (Fr) (Fr) 2 (Fr) Remarks Device Remarks Femoral Left 5 Fr Manual vein Compressio n Femoral Right 5 Fr 6 Fr 6 Fr Exoseal artery Mid-Length Short Estimated blood loss: 10 ml Diagnostic catheters Device Type Used For End Catheter Placement DIAGNOSTIC UF 5Fr Procedure catheter ([id number]) Procedure Complications No complications Procedure Medications Medication Administration Route Dosage Oxygen NC 2 l/min Lidocaine 2% added to field 20 Heparin Flush Bag added to field 2 bags (1000units/500ml NS) 0.9% NaCl I.V. 100 ml/hr Versed I.V. 1 mg Fentanyl I.V. 50 mcg Versed I.V. 1 mg Fentanyl I.V. 50 mcg Versed I.V. 0.5 mg Fentanyl I.V. 25 mcg Heparin Bolus I.V. 6500 units Hemodynamics Rest HGB: 13.4 (g/dl) Heart Rate: 73 (bpm) Snapshots Pre Cath Intra NCS Post Cath Vital Signs Time Heart Resp SPO2 etCO2 NIBP (mmHg) Rhythm Pain Sedation Rate (ipm) (%) (mmHg) Status Level (bpm) 13:01:06 63 30 97 0 No Cuff NSR 0 (11) 10(A) , No pain 13:03:33 65 12 97 37.4 176/67(128) NSR 0 (11) 10(A) , No pain 13:08:24 63 15 94 41.1 146/60(107) NSR 0 (11) 10(A) , No pain 13:13:03 58 16 94 3.7 119/66(87) NSR 0 (11) 10(A) , No pain 13:17:45 59 15 94 0 128/54(104) NSR 0 (11) 9(A) , No pain 13:22:28 57 13 96 0 130/56(104) NSR 0 (11) 9(A) , No pain 13:27:09 59 15 96 0 118/55(79) NSR 0 (11) 9(A) , No pain 13:31:51 55 15 96 43.3 86/53(76) NSR 0 (11) 9(A) , No pain 13:36:28 56 15 94 49.3 96/46(89) NSR 0 (11) 9(A) , No pain 13:41:09 55 23 93 45.5 103/42(61) NSR 0 (11) 9(A) , No pain 13:45:47 55 25 94 41.8 105/50(71) NSR 0 (11) 9(A) , No pain 13:50:28 54 19 94 40.3 84/39(72) NSR 0 (11) 9(A) , No pain 13:55:37 57 17 94 43.3 115/54(97) NSR 0 (11) 9(A) , No pain 14:00:17 59 12 94 41.1 119/65(82) NSR 0 (11) 9(A) , No pain Medications Time Medication Route Dose Verified Delivered Reason Notes Effectiveness by by 13:04:28 Oxygen NC 2 Sohail Buffie used for l/min Connor Castro RN procedure 13:04:36 Lidocaine 2% added 20ml Sohail Sohail for local to vial Connor Napier MD anesthetic field 13:04:41 Heparin Flush added 2 Sohail Sohail used for Bag to bags Connor Napier MD procedure (1000units/500ml field NS) 13:04:50 0.9% NaCl I.V. 100 Sohail Buffie Per physician ml/hr Connor Castro RN 13:11:39 Versed I.V. 1 mg Sohail Buffie for sedation Connor Castro RN 13:11:46 Fentanyl I.V. 50 Sohail Buffie for sedation mcg Connor Castro RN 13:16:13 Versed I.V. 1 mg Sohail Buffie for sedation Connor Castro RN 13:16:16 Fentanyl I.V. 50 Sohail Buffie for sedation mcg Connor Castro RN 13:23:20 Versed I.V. 0.5 Sohail Buffie for sedation mg Connor Castro RN 13:23:25 Fentanyl I.V. 25 Sohail Buffie for sedation mcg Connor Castro RN 13:45:31 Heparin Bolus I.V. 6,500 Sohail Buffie for verifi ed units Connor Castro RN anticoagulation with dr napier Procedure Log Time Note 12:46:36 Admit Source: Other 12:46:37 Diagnostic Cath status Elective 12:46:39 Time tracking: Regular hours (M-F 7:00 - 5:00) 12:46:42 Plan of Care:Hemodynamics will remain stable., Cardiac rhythm will remain stable., Comfort level will be maintained., Respiratory function will remain adequate., Patient/ family verbilizes understanding of procedure., Procedure tolerated without complication., Recovers from procedure without complications.. 12:46:49 H&P Date Dictated: 12/19/2017 Within 30 days and on chart., H&P Addendum completed by physician on day of procedure. (MUST COMPLETE FOR ALL OUTPATIENTS). 12:46:52 Freddy Rascon RT(R) sent for patient. Start room use. 12:53:13 Patient received from Pre/Post Procedure Room to CCL 1 Alert and oriented. Tansferred to table in Supine position. 12:53:14 Warm blankets applied, and kevyn hugger turned on for patient comfort. 12:53:15 Correct patient and procedure confirmed by team. 12:53:16 Signed procedure consent form obtained from patient. 12:53:17 ECG and BP/O2 sat monitors applied to patient. 12:53:18 Full Disclosure recording started 12:58:59 Vital chart was started 13:04:28 Oxygen 2 l/min NC was administered by Carolyn Castro RN; used for procedure; 13:04:36 Lidocaine 2% 20ml vial added to field was administered by Sohail Napier MD; for local anesthetic; 13:04:41 Heparin Flush Bag (1000units/500ml NS) 2 bags added to field was administered by Sohail Napier MD; used for procedure; 13:04:50 0.9% NaCl 100 ml/hr I.V. was administered by Carolyn Castro RN; Per physician; 13:06:08 Baseline sample Acquired. 13:06:17 Baseline sample Acquired. 13:06:21 Rhythm: sinus rhythm 13:06:25 Pre-procedure instructions explained to patient. 13:06:25 Pre-op teaching completed and patient verbalized understanding. 13:06:27 Family in waiting room. 13:06:29 Patient NPO since Midnight. 13:06:34 Patient allergic to No known allergies 13:06:36 Is the patient allergic to Iodine/contrast media? No. 13:06:37 Is patient on blood thinner?Yes 13:06:39 ACC The patient was administered the following blood thiners within the last 24 hours: ACCPlavix 13:06:41 Patient diabetic? No. 13:06:44 Previous problem with sedation/anesthesia? No ? 13:06:46 Snore? Yes 13:06:47 Sleep apnea? Yes 13:06:48 Deviated septum? No 13:06:50 Opens mouth fully? Yes 13:06:50 Sticks out tongue? Yes 13:06:52 Airway obstruction? No ? 13:06:54 Dentures? No ? 13:08:16 Pre procedure: right dorsailis pedis pulse Doppler 13:08:18 Pre procedure: left dorsailis pedis pulse 2+ Normal; easily identifiable; not easily obliterated 13:08:21 Patient pain scale 0/10 ?. 13:08:26 IV patent on arrival in right antecubital with 0.9% NaCl at [facility]. 13:09:38 Lab results completed and on chart. 13:09:41 Bilateral groins area was prepped with chlora-prep and draped in sterile fashion 13:09:42 Alarms reviewed by R. N. 13:09:42 Sharps counted by scrub and verified by R.N. 13:09:45 ACIST Syringe (25464) opened to sterile field. 13:09:45 Bag Decanter (2002S) opened to sterile field. 13:09:46 Medline Cath Pack ([id number]) opened to sterile field. 13:09:48 ACIST Manifold (63625) opened to sterile field. 13:09:48 ACIST Hand Control (50548) opened to sterile field. 13:09:49 Tegaderm 4 x 4 (1626W) opened to sterile field. 13:09:50 SHEATH Prelude 5Fr 0.035 (QYN-3W-23-035) opened to sterile field. 13:09:53 DIAGNOSTIC WIRE .035 260cm J wire (419783) opened to sterile field. 13:10:00 Physician arrived 13:10:00 --------ALL STOP TIME OUT------ 13:10:01 Final Timeout: patient, procedure, and site verified with staff and physician. All members of the team are in agreement. 13:10:03 Bilateral groins site verified by team. 13:10:05 Physical assessment completed. ASA score P 2 - A patient with mild systemic disease as per Sohail Napier MD. 13:10:07 Sedation plan: IV Moderate Sedation Medication:Versed, Fentanyl 13:11:39 Versed 1 mg I.V. was administered by Carolyn Castro RN; for sedation; 13:11:46 Fentanyl 50 mcg I.V. was administered by Carolyn Castro RN; for sedation; 13:12:40 Procedure started. 13:12:44 Local anesthetic to left femerol artery with Lidocaine 2% by Sohail Napier MD.INITIAL ACCESS ONLY 13:13:01 Zero performed for pressure channel P1 13:16:13 Versed 1 mg I.V. was administered by Carolyn Castro RN; for sedation; 13:16:16 Fentanyl 50 mcg I.V. was administered by Carolyn Castro RN; for sedation; 13:21:09 Lab Result : BUN 31 mg/dl 13:21:09 Lab Result : Creatinine 1.5 mg/dl 13:21:09 Lab Result : Hemoglobin 13.4 g/dl 13:21:09 Lab Result : Hematocrit 39 % 13:23:20 Versed 0.5 mg I.V. was administered by Carolyn Castro RN; for sedation; 13:23:25 Fentanyl 25 mcg I.V. was administered by Carolyn Castro RN; for sedation; 13:30:53 A 5 Fr sheath was inserted into the Left Femoral vein 13:31:04 SHEATH Prelude 5Fr 0.035 (SXF-8I-12-035) opened to sterile field. 13:32:48 A 5 Fr sheath was inserted into the Right Femoral artery 13:33:36 A DIAGNOSTIC UF 5Fr catheter ([id number]) was advanced over the wire and used for Procedure. 13:34:32 Abdominal angiogram w/ runoff was performed. 13:34:34 Left leg runoff performed. 13:35:01 Right leg runoff performed. 13:36:33 SHEATH 6FR Destination (RSR01) opened to sterile field. 13:37:02 INFLATOR Merit BasixCompak (GB6618) opened to sterile field. 13:37:15 SHEATH Prelude 6Fr 0.035 (AKX-9W-72-035) opened to sterile field. 13:38:53 J wire advance around horn for sheath exchange. 13:39:02 Sheath upsized to a 6 Fr Mid-Length. 13:42:19 GLIDE WIRE Super Stiff Angled 260cm ([id number]) opened to sterile field. 13:42:34 glide wire advanced. 13:42:45 TORQUE DEVICE PLASTIC .038 ( TD01) opened to sterile field. 13:45:31 Heparin Bolus 6,500 units I.V. was administered by Carolyn Castro RN; for anticoagulation; verified with dr napier 13:46:16 Wire advanced across lesion. 13:50:03 Inflate balloon Inflation number: 1 A POWERFLEX PRO 5.0 X 100 X 135 balloon ([id number]) was prepped and advanced across the Mid Superficial Femoral, Right, then inflated to 4 DAVE for 2:09 (min:sec). 13:54:15 Balloon removed over the wire. 13:54:15 Wire removed. 13:54:58 EXOSEAL 6Fr (EX600) opened to sterile field. 13:55:09 Sheath upsized to a 6 Fr Short. 13:55:23 Sheath removed intact; hemostasis achieved with Exoseal to the Right Femoral artery. 13:55:35 Sheath removed intact; hemostasis achieved with Manual Compression to the Left Femoral vein. 13:55:49 Procedure ended.(Physican Out) 13:56:42 Fluoroscopy time 10.40 minutes. 13:56:45 Flurop Dose total: 268 13:56:45 Fluoroscopy dose: 268 mGy 13:56:50 Contrast amount:Isovue 370 94ml. 13:56:51 Sharps counted by scrub and verified by R.N. 13:57:30 Insertion/operative site no bleeding no hematoma. 13:57:33 Post-op/insertion site Left Femoral artery dressed using a 4 x 4 and Tegaderm. 13:57:39 Post left femerol artery:stable, soft, clean and dry 13:57:44 Post-op/insertion site Left Femoral vein dressed using a 4 x 4 and Tegaderm. 13:57:48 Post left femoral vein:stable, soft, clean and dry 13:57:50 Post Procedure Pulses reassessed and unchanged 13:57:52 Post-procedure physical assessment completed. ASA score P 2 - A patient with mild systemic disease as per Sohail Napier MD. 13:57:56 Post procedure rhythm: unchanged. 13:58:00 Estimated blood loss: 10 ml 13:58:01 Post procedure instruction explained to patient.Patient verbalizes understanding. 13:58:02 Patient needs reinforcement of post procedure teaching. 13:58:45 Procedure type changed to Cath procedure, Diagnostic procedure, Sedation Charges, Moderate Sedation up to 30 minutes, Peripheral Cath Diagnostic Procedure, Cath Peripheral, Dcqha-Hgthacf-Trc-Off, Peripheral vascular Intervention, Angioplasty, Angioplasty Fem/Pop 14:00:22 Procedure and supply charges have been captured, reviewed, submitted and are correct. 14:00:24 Procedure Complication : No complications 14:00:27 Vital chart was stopped 14:01:08 See physician's report for complete and final results. 14:01:09 Report given to Pre/Post Procedure Room. 14:01:12 Patient transfered to Pre/Post Procedure Room with Stretcher. 14:01:14 Procedure ended. 14:01:14 Full Disclosure recording stopped 14:01:19 End room use (Document Last) Intervention Summary Intervention Notes Time ActionType Lesion and Equipment Action# Pressure Duration Attributes Used 13:50:03 Inflate Mid POWERFLEX 1 4 02:09 balloon Superficial PRO 5.0 X Femoral, 100 X 135 Right balloon ([id number]) Device Usage Item Name Manufacture Quantity Catalog Number Hospital Part Current Minimal Lot# / Charge Number Stock Stock Serial# Code ACIST Syringe Acist 1 34668 187886 118141 605307 20 (67541) [employer] Bag Decanter Microtek 1 2001S 870644 81288 146206 5 (2001S) Medical Inc. Medline Cath Cardinal 1 [id number] 313302 00822 323983 5 [facility] ([id number]) ACIST Manifold Acist 1 33594 659143 549561 477296 5 (27640) [employer] ACIST Hand Acist 1 41614 615609 780030 248598 5 Control (89527) [employer] Inc Tegaderm 4 x 4 3M 1 1626W 879569 794929 571425 5 (1626W) SHEATH Prelude Merit 2 UTG-9B-51-035 413558 011051 452076 5 5Fr 0.035 Medical (DUF-8L-00-035) DIAGNOSTIC WIRE St Rickey 1 051468 007979 232491 745340 30 .035 260cm J wire (202529) DIAGNOSTIC UF Cardinal 1 [id number] 018974 215522 993900 10 5Fr catheter Health ([id number]) SHEATH 6FR Terumo 1 RSR01 988487 87288 036286 5 Destination (RSR01) INFLATOR Merit Merit 1 HN4470 995708 953867 162038 15 BasixCompak Medical (DU1168) SHEATH Prelude Merit 1 OCA-5R-90-35 306172 4649519 071067 5 6Fr 0.035 Medical (ENY-5U-13-035) GLIDE WIRE Terumo 1 GT6953 901796 775852 662311 5 Super Stiff Angled 260cm (GB7689) TORQUE DEVICE Dierks 1 TD01 003283 454845 670287 5 PLASTIC .038 ( Scientific TD01) POWERFLEX PRO Cardinal 1 [id number] 485010 173346 108247 5 5.0 X 100 X 135 Health balloon ([id number]) EXOSEAL 6Fr Cardinal 1 EX600 817295 225681 824196 10 (EX600) Health Signature Audit [place] Stage Time Signature Unsigned Intra-Procedure 01/07/2018 Ferddy Rascon 2:02:48 PM RT(R) Signatures Monitor : Freddy Rascon RT Signature : Date : Time : [id number] [place] [address]
[2018-01-07 10:47] VITALS: BP 176/47; Ht 163.8 cm; Wt 74.5 kg
[2018-01-07 11:28] LABS: BASOPHILS 0.4 % (0-2); EOSINOPHILS 3.8 % (0-7); HEMOGLOBIN 13.4 g/dL (12-16); MCH 30.3 pg (26.0-34.0); MCHC 34.4 g/dL (31.0-37.0); MCV 88.2 fL (80.0-100.0); NEUTROPHILS 61.8 % (40-80); PLATELET COUNT 181 10x3/uL (130-400); RBC 4.42 10x6/uL (4.00-5.40); RDW 13.8 % (11.5-14.5); WBC 4.7 10x3/uL (4.8-10.8)
[2018-01-07 11:36] LABS: ANION GAP 14.5 mmol/L (8-16); CALCIUM 9.7 mg/dL (8.5-10.1); CARBON DIOXIDE 29.3 mmol/L (21.0-32.0); CREATININE - SERUM 1.5 mg/dL (0.6-1.3); POTASSIUM - SERUM 3.8 mmol/L (3.5-5.1)
== END | disposition home or self-care (01) ==
LOC: D.CATH 10:25
PROVIDERS: Internal Medicine Cardiovascular Disease
DX: I70.211 Atherosclerosis of native arteries of extremities with intermittent claudication, right leg (principal); Z01.812 Encounter for preprocedural laboratory examination

== ENCOUNTER 2018-09-23 11:37 | Outpatient (CLI) | payer MEDICARE, BC, MEDICAID ==
[~2018-09-23] VITALS: Ht 163.8 cm; Wt 77.3 kg
--- NOTE | ~2018-09-23 | HEMODYNAMI ---
PATIENT:VIOLET FALCON MEDICAL RECORD: [id number] : 35 LOCATION:[facility] ADMISSION DATE: 09/23/18 Generatedon:09/23/201814:37 Patient name: VIOELT FALCON Patient #: [id number] SSN: DO B: 1935 Date of study: 09/23/2018 Page: Of Hemodynamic Procedure Report Patient Data Patient Demographics Procedure consent was obtained First Name: VIOLET Gender: Female Last Name: TERRIE : 1935 Middle Initial: R Age: 83 year(s) Patient #: [id number] Race: Unknown Additional ID: [id number] Contact details Address: [address] [place] [address] [employer] [facility] State: [place] City: [place] Zip code: [address] Past Medical History Allergies: No known allergies Admission Admission Data Admission Date: 09/23/2018 Admission Time: 11:37 Admit Source: Other Height (in.): 64 BSA: 1.82 (m2) Height (cm.): 162.56 BMI: 29.01 (kg/m2) Weight (lbs.): 169 Weight (kg.): 76.66 Lab Results Lab Result Date: 09/23/2018 Lab Result Time: 0:00 Biochemistry Name Units Result Min Max BUN mg/dl 36 --(----)-* 7 18 Creatinine mg/dl 1.7 --(----)-* 0.6 1.3 CBC Name Units Result Min Max Hemoglobin g/dl 13.8 --(*---)-- 13.5 17.5 Procedure Procedure Types Cath Procedure Diagnostic Procedure [facility] w/Coronaries Sedation Charges Moderate Sedation up to 30 minutes PCI Procedure Coronary Stent Coronary Stent Initial Procedure Description Procedure Date Procedure Date: 09/23/2018 Procedure Start Time: 13:57 Procedure End Time: 14:33 Procedure Staff Name Function Sohail Ryan MD Performing Physician Freddy Rascon RT Scrub Carole Zaman RN Nurse Umer Pérez RN Lining Layer Carline Trimble RT Monitor Procedure Data Cath Procedure Fluoroscopy Diagnostic fluoroscopy Total fluoroscopy Time: time: 10.1 min 10.1 min Diagnostic fluoroscopy Total fluoroscopy dose: 906 dose: 906 mGy mGy Contrast Material Contrast Material Type Amount (ml) Isovue 300 123 Entry Location Entry Primary Successful Side Size Upsize Upsize Entry Closure Huerta ccessful Closure Location (Fr) 1 (Fr) 2 (Fr) Remarks Device Remarks Radial Right 6 Fr Mechanical artery Short Compression Femoral Right 5 Fr Exoseal artery Estimated blood loss: 11 ml Diagnostic catheters Device Type Used For End Catheter Placement DIAGNOSTIC 5FR Infinity Procedure RBL-TG ([id number]) DIAGNOSTIC AR1 MOD 5Fr Procedure catheter ([id number]) DIAGNOSTIC AR1 MOD 5Fr Procedure catheter ([id number]) Procedure Complications No complications Procedure Medications Medication Administration Route Dosage 0.9% NaCl I.V. 100 ml/hr Oxygen etCO2 Nasal cannula 2 l/min Lidocaine 2% added to field 20 Heparin Flush Bag added to field 2 bags (1000units/500ml NS) Radial Cocktail added to field 1 syringe (Verapomil 2mg/Nitro 400mcg/Heparin 1500units) Versed I.V. 2 mg Fentanyl 50 mcg Versed I.V. 2 mg Fentanyl 25 mcg Heparin Bolus I.V. 7500 units Hemodynamics Rest BSA: 1.82 (m2) O2 Consumption: Estimated: 154.38 (ml/min) O2 Consumption indexed : Estimated:84.82 (ml/min/m) Heart Rate: 58 (bpm) Pressure Samples Time Site Value (mmHg) Purpose Heart Use Rate(bpm) 14:01 LV 121/2,11 Snapshot 58 Gradients Valve Time Site Site Mean SEP/DFP Peak To Heart Use 1 2 (mmHg) (sec/min) Peak Rate (mmHg) (bpm) Aortic 14:02 LV AO 58 Snapshots Pre Cath Intra NCS Post Cath Vital Signs Time Heart Resp SPO2 etCO2 NIBP (mmHg) Rhythm Pain Sedation Rate (ipm) (%) (mmHg) Status Level (bpm) 13:47:38 60 39 97 33.2 151/65(108) NSR 0 (11) 10(A) , No pain 13:52:01 61 15 98 34 149/67(105) NSR 0 (11) 10(A) , No pain 13:56:15 57 14 96 29 115/64(100) NSR 0 (11) 10(A) , No pain 14:00:35 59 13 98 21.3 111/46(71) NSR 0 (11) 10(A) , No pain 14:04:49 61 13 96 14.3 125/64(105) NSR 0 (11) 9(A) , No pain 14:09:03 57 16 96 14.3 131/66(103) NSR 0 (11) 9(A) , No pain 14:13:19 60 15 97 10.5 133/63(101) NSR 0 (11) 9(A) , No pain 14:17:31 58 11 97 15.1 122/66(104) NSR 0 (11) 9(A) , No pain 14:21:49 59 17 98 11.3 130/65(100) NSR 0 (11) 9(A) , No pain 14:26:09 60 16 98 21.1 129/66(113) NSR 0 (11) 10(A) , No pain 14:31:08 61 15 97 21.1 Measuring NSR 0 (11) 10(A) , No pain 14:31:26 60 9 99 28.6 150/59(105) NSR 0 (11) 10(A) , No pain Medications Time Medication Route Dose Verified Delivered Reason Not es Effectiveness by by 13:46:38 0.9% NaCl I.V. 100 Sohail Carole used for ml/hr Connor Zaman hcc coders 13:46:45 Oxygen etCO2 2 l/min Sohail Carole used for Nasal Connor Zaman procedure cannula RN 13:46:51 Lidocaine 2% added 20ml Sohail Sohail for local to vial Connor Ryan MD anesthetic field 13:46:58 Heparin Flush added 2 bags Sohail Sohail used for Bag to Connor Ryan MD procedure (1000units/500ml field NS) 13:47:10 Radial Cocktail added 1 Sohail Shoail used for (Verapomil to syringe Connor Ryan MD procedure 2mg/Nitro field 400mcg/Heparin 1500units) 13:53:02 Versed I.V. 2 mg Sohail Carole for sedation Connor Zaman RN 13:53:10 Fentanyl 50 mcg Sohail Carole for sedation Connor Zaman RN 14:02:03 Versed I.V. 2 mg Sohail Carole for sedation Connor Zaman RN 14:02:07 Fentanyl 25 mcg Sohail Carole for sedation Connor Zaman RN 14:20:54 Heparin Bolus I.V. 7500 Sohail Carole for russ ified units Connor Zaman anticoagulation with Dr. MAIK Ryan Procedure Log Time Note 13:19:36 Informed consent obtained and on chart 13:19:39 Admit Source: Other 13:19:58 Diagnostic Cath status Elective 13:21:23 H&P Date Dictated: 09/11/2018 Within 30 days and on chart., H&P Addendum completed by physician on day of procedure. (MUST COMPLETE FOR ALL OUTPATIENTS). 13:33:15 Freddy Rascon RT(R) sent for patient. Start room use. 13:37:46 Patient Height : 64 inches 13:37:52 Patient Weight : 169 lbs 13:39:38 Lab Result : BUN 36 mg/dl 13:39:38 Lab Result : Hemoglobin 13.8 g/dl 13:39:38 Lab Result : Creatinine 1.7 mg/dl 13:39:51 Patient received from Pre/Post Procedure Room to CCL 1 Alert and oriented. Tansferred to table in Supine position. 13:39:53 Warm blankets applied, and kevyn hugger turned on for patient comfort. 13:39:55 Correct patient and procedure confirmed by team. 13:39:55 ECG and BP/O2 sat monitors applied to patient. 13:46:26 Vital chart was started 13:46:38 0.9% NaCl 100 ml/hr I.V. was administered by Carole Zaman RN; used for procedure; 13:46:45 Oxygen 2 l/min etCO2 Nasal cannula was administered by Carole Zaman RN; used for procedure; 13:46:51 Lidocaine 2% 20ml vial added to field was administered by Sohail Ryan MD; for local anesthetic; 13:46:58 Heparin Flush Bag (1000units/500ml NS) 2 bags added to field was administered by Sohail Ryan MD; used for procedure; 13:47:10 Radial Cocktail (Verapomil 2mg/Nitro 400mcg/Heparin 1500units) 1 syringe added to field was administered by Sohail Ryan MD; used for procedure; 13:50:46 Rhythm: sinus rhythm 13:50:47 Full Disclosure recording started 13:50:48 Pre-procedure instructions explained to patient. 13:50:49 Pre-op teaching completed and patient verbalized understanding. 13:50:51 Family in patients room. 13:50:52 Patient NPO since Midnight. 13:50:58 Patient allergic to No known allergies 13:51:01 Is patient on blood thinner?Yes 13:51:04 ACC The patient was administered the following blood thiners within the last 24 hours: ACCPlavix 13:51:05 Patient diabetic? No. 13:51:06 Patient not . Patient is over age 55. 13:51:08 Previous problem with sedation/anesthesia? No ? 13:51:08 Snore? Yes 13:51:10 Sleep apnea? No 13:51:12 Deviated septum? No 13:51:12 Opens mouth fully? Yes 13:51:13 Sticks out tongue? Yes 13:51:16 Airway obstruction? No ? 13:51:18 Dentures? No ? 13:51:37 Modified Nura's test Ulnar < 7 seconds 13:51:39 Patient pain scale 0/10 ?. 13:51:43 IV patent on arrival in left hand with 0.9% NaCl at [facility]. 13:51:45 Lab results completed and on chart. 13:51:49 Right Radial & Right Groin area was prepped with chlora-prep and draped in sterile fashion 13:51:49 Alarms reviewed by R. N. 13:51:50 Sharps counted by scrub and verified by R.N. 13:51:51 --------ALL STOP TIME OUT------ 13:51:52 Final Timeout: patient, procedure, and site verified with staff and physician. All members of the team are in agreement. 13:51:54 Right Radial & Right Groin site verified by team. 13:51:57 Physical assessment completed. ASA score P 2 - A patient with mild systemic disease as per Sohail Ryan MD. 13:52:00 Sedation plan: IV Moderate Sedation Medication:Versed, Fentanyl 13:52:02 Use device set Radial Dx or PCI 13:52:03 ACIST Syringe (82472) opened to sterile field. 13:52:04 Bag Decanter (2001S) opened to sterile field. 13:52:05 ACIST Hand Control (29885) opened to sterile field. 13:52:05 ACIST Manifold (95823) opened to sterile field. 13:52:06 Tegaderm 4 x 4 (1626W) opened to sterile field. 13:52:12 Medline Cath Pack ([id number]) opened to sterile field. 13:52:12 DIAGNOSTIC WIRE .035 260cm J wire (907003) opened to sterile field. 13:52:13 MBrace Wrist Support ([id number]) opened to sterile field. 13:52:23 SHEATH 6FR RAIN (2427200) NO COST SUPPLY opened to sterile field. 13:53:02 Versed 2 mg I.V. was administered by Carole Zaman RN; for sedation; 13:53:10 Fentanyl 50 mcg was administered by Carole Zaman RN; for sedation; 13:55:50 Zero performed for pressure channel P1 13:55:59 Procedure started. 13:57:01 Local anesthetic to right radial artery with Lidocaine 2% by Sohail Ryan MD.INITIAL ACCESS ONLY 13:57:17 Zero performed for pressure channel P1 13:58:08 A 6 Fr Short sheath was inserted into the Right Radial artery 13:59:09 A DIAGNOSTIC 5FR Infinity RBL-TG ([id number]) was advanced over the wire and used for Procedure. 14:01:11 LV gram done using HARVEY 14:01:18 Injector settings: Ml/sec: 7, Volume: 15, 14:01:32 LV hemodynamics recorded. 14:01:47 EF : 60 % 14:02:03 Versed 2 mg I.V. was administered by Carole Zaman RN; for sedation; 14:02:07 Fentanyl 25 mcg was administered by Carole Zaman RN; for sedation; 14:04:49 LCA angiography performed. 14:06:02 Catheter exchanged over wire. 14:06:40 A DIAGNOSTIC AR1 MOD 5Fr catheter ([id number]) was advanced over the wire and used for Procedure. 14:08:34 Catheter removed. 14:08:45 UNABLE TO TORQUE AROUND AORTA. 14:08:58 SHEATH 5FR Ol[place] (GTS719) opened to sterile field. 14:09:17 DIAGNOSTIC WIRE .035 260cm J wire (696890) opened to sterile field. 14:09:50 Local anesthetic to right femoral artery with Lidocaine 2% by Sohail Ryan MD.ADDITIONAL ACCESS 14:13:38 A 5 Fr sheath was inserted into the Right Femoral artery 14:13:59 A DIAGNOSTIC AR1 MOD 5Fr catheter ([id number]) was advanced over the wire and used for Procedure. 14:16:26 RCA angiography performed. 14:16:31 Catheter removed. 14:16:58 SHEATH 6FR [place] (RMS769) opened to sterile field. 14:17:34 INFLATOR Merit BasixCompak (TL7092) opened to sterile field. 14:17:35 TUBING High Pressure Extension Tubing (Connor) (NY7928S) opened to sterile field. 14:17:45 BMW 300cm Straight Blue Diamond 2 wire (0728357) opened to sterile field. 14:18:50 6 Fr XBLAD 3.5 guide catheter was inserted over the wire 14:20:54 Heparin Bolus 7500 units I.V. was administered by Carole Zaman RN; for anticoagulation; verified with Dr. Ryan 14:22:33 BMW 300 wire advanced. 14:22:34 Wire advanced across lesion. 14:26:25 Place stent Inflation Number: 1 A INTEGRITY OTW 3.0 X 22 stent ([id number]) was prepped and advanced across the Mid LAD. The stent was deployed at 13 DAVE for 0:10 (min:sec). 14:26:56 Stent catheter was removed intact over wire. 14:26:57 Wire removed. 14:26:57 Guide catheter removed. 14:27:20 EXOSEAL 6Fr (EX600) opened to sterile field. 14:28:11 Sheath removed intact; hemostasis achieved with Exoseal to the Right Femoral artery. 14:28:25 TR BAND Large ([id number]) opened to sterile field. 14:29:08 Procedure ended.(Physican Out) 14:29:20 Fluoroscopy time 10.10 minutes. 14::35 Flurop Dose total: 906 14::35 Fluoroscopy dose: 906 mGy 14:29:41 Contrast amount:Isovue 300 123ml. 14:29:44 Sharps counted by scrub and verified by R.N. 14:29:47 Post-op/insertion site Right Femoral artery dressed using a 4 x 4 and Tegaderm. 14:30:06 Sheath removed intact; hemostasis achieved with Mechanical Compression to the Right Radial artery. 14:30:14 TR band inflated with 10cc of air. 14:31:41 Post-procedure physical assessment completed. ASA score P 2 - A patient with mild systemic disease as per Sohail Ryan MD. 14:31:45 Post procedure rhythm: sinus rhythm 14:31:47 Estimated blood loss: 11 ml 14:31:49 Post procedure instruction explained to patient.Patient verbalizes understanding. 14:31:49 Patient needs reinforcement of post procedure teaching. 14:32:21 Procedure type changed to Cath procedure, Diagnostic procedure, LHC, LHC w/Coronaries, Sedation Charges, Moderate Sedation up to 30 minutes, PCI procedure, Coronary Stent, Coronary Stent Initial 14:33:17 Procedure and supply charges have been captured, reviewed, submitted and are correct. 14:33:19 Procedure Complication : No complications 14:33:21 Vital chart was stopped 14:33:21 See physician's report for complete and final results. 14:33:22 Report given to Pre/Post Procedure Room. 14:33:25 Patient transfered to Pre/Post Procedure Room with Bed. 14:33:26 Procedure ended. 14:33:26 Full Disclosure recording stopped 14:33:29 End room use (Document Last) Intervention Summary Intervention Notes Time ActionType Lesion and Equipment Action# Pressure Duration Attributes Used 14:26:25 Place stent Mid LAD INTEGRITY 1 13 00:10 OTW 3.0 X 22 stent ([id number]) Device Usage Item Name Manufacture Quantity Catalog Hospital Part Current Minimal Lot# / Number Charge Number Stock Stock Serial# Code ACIST Acist 1 61571 072246 612940 618724 20 Syringe Medical (42193) Systems Inc Bag Microtek 1 745250 76923 798713 5 Decanter Medical Inc. () ACIST Hand Acist 1 41406 735339 686287 717743 5 Control Medical (80359) Systems Inc ACIST Acist 1 73226 230334 610003 227964 5 Manifold Medical (01457) Systems Inc Tegaderm 4 3M 1 1626W 646332 398622 166220 5 x 4 (1626W) Medline Medline 1 [id number] 069970 74182 607834 5 Cath Pack ([id number]) DIAGNOSTIC St Rickey 2 497658 157690 319569 934195 30 WIRE .035 260cm J wire (898202) MBrace Advanced 1 140-0250-00 245498 47084 144880 5 Wrist Vascular Support Dynamics ([id number]) SHEATH 6FR Cardinal 1 8254521 990829 898617 5 [facility] (0226489) NO COST SUPPLY DIAGNOSTIC Cardinal 1 [id number] 066000 829153 5 5FR Health Infinity RBL-TG (691916L3) DIAGNOSTIC Cardinal 1 [id number] 786100 341078 835313 15 AR1 MOD 5Fr Health catheter (651076M) SHEATH 5FR Terumo 1 HTO107 771337 232166 186091 5 Ol[place] (HYI801) SHEATH 6FR Terumo 1 XCQ063 162274 459074 047067 40 [place] (GMV198) INFLATOR Merit 1 LX7263 388010 019978 561129 15 Merit Medical BasixCompak (OD8346) TUBING High Merit 1 [id number] 645952 05612 099853 10 Pressure Medical Extension Tubing (Ryan) ([id number]) BMW 300cm Carpenter 1 5477899 151604 075205 236939 5 Straight Vascular Blue Diamond 2 wire (7417501) INTEGRITY Medtronic 1 [id number] 394631 627558 339858 1 OTW 3.0 X 22 stent ([id number]) EXOSEAL 6Fr Cardinal 1 EX600 491275 308005 959706 10 (EX600) Health TR BAND Terumo 1 [id number] 633166 527026 054033 40 Large ([id number]) Signature Audit [place] Stage Time Signature Unsigned Intra-Procedure 09/23/2018 Carline Trimble 2:37:39 PM RT(R) Signatures Monitor : Carline Trimble Signature : RT Date : Time : [facility] [address] [place] [address]
[2018-09-23] MEDS ORDERED: BENICAR HCT 401 EAC1 PO (12:09)
[2018-09-23] MEDS ORDERED: PRAVACHOL80 MG PO (12:10)
[2018-09-23 12:17] VITALS: BP 173/53; Ht 163.8 cm; Wt 77.3 kg
[2018-09-23 12:27] LABS: BASOPHILS 0.8 % (0-2); EOSINOPHILS 5.8 % (0-7); HEMATOCRIT 40.4 % (36.0-48.0); HEMOGLOBIN 13.8 g/dL (12-16); IMMATURE GRANULOCYTES 0.3 % (0-5); LYMPHOCYTES 25.8 % (15-50); MCH 30.1 pg (26.0-34.0); MCHC 34.2 g/dL (31.0-37.0); MCV 88.2 fL (80.0-100.0); MEAN PLATELET VOLUME 10.9 fL (7.4-10.4); MONOCYTES 11.4 % (2-11); NEUTROPHILS 55.9 % (40-80); PLATELET COUNT 198 10x3/uL (130-400); RBC 4.58 10x6/uL (4.00-5.40); WBC 6.2 10x3/uL (4.8-10.8)
[2018-09-23 12:39] LABS: ANION GAP 14.5 mmol/L (8-16); CALCIUM 9.1 mg/dL (8.5-10.1); CARBON DIOXIDE 26.3 mmol/L (21.0-32.0); CREATININE - SERUM 1.7 mg/dL (0.6-1.3); POTASSIUM - SERUM 3.8 mmol/L (3.5-5.1)
--- NOTE | 2018-09-23 14:40 | NUR ---
PT RECEIVED VIA STRETCHER FROM [employer] POST PROCEDURE FOR RECOVERY. PT SLEEPING BUT VERBALLY AROUSABLE. HR 63 NSR, BP 149/57, O2 SAT 95 ON ROOM AIR, PLACED ON 2L/NC. TR BAND TO R WRIST INTACT, NO BLEEDING OR HEMATOMA NOTED. 6FR EXOCELE TO R GROIN, DRESSING CDI NO BLEEDING OR SWELLING NOTED. CALL LIGHT IN REACH.
--- NOTE | 2018-09-23 15:00 | NUR ---
PT SLEEPING W EYES CLOSED, HR NSR RATE 60, BP 146/53. TRB IN PLACE NO BLEEDING OR SWELLING NOTED. R GROIN DRESSING CDI NO BLEEDING OR SWELLING NOTED. PEDAL PULSE PALPABLE. CALL LIGHT IN REACH.
--- NOTE | 2018-09-23 15:15 | NUR ---
PT RESTING QUIETLY, C/O LEG RESTLESSNESS WARM BLANKETS GIVEN FOR COMFORT. R GROIN DRESSING CDI NO BLEEDING OR SWELLING NOTED. TRB IN PLACE NO BLEEDING OR SWELLING NOTED. SIPS OF SPRITE GIVEN PER REQUEST. CALL LIGHT IN REACH, FAMILY AT BEDSIDE. DR. PEOPLES IN TO DISCUSS PROCEDURE RESULTS AND PLAN OF CARE.
--- NOTE | 2018-09-23 15:45 | NUR ---
PT RESTING QUIETLY, LEGS SOME BETTER. TR BAND IN PLACE, NO BLEEDING OR HEMATOMA NOTED, DRESSING CDI. R GROIN DRESSING REMAINS CDI. NO BLEEDING OR SWELLING NOTED. VSS. FAMILY AT BEDSIDE, PT DENIES NEEDS
--- NOTE | 2018-09-23 16:18 | NUR ---
PT RESTING, PT REQUEST BEDPAN BUT UNABLE TO VOID. REPOSITIONED FOR COMFORT. TR BAND W/O BLEEDING OR SWELLING TO SITE. R GROIN DRESSING REMAINS CDI NO BLEEDING NOTED. CALL LIGHT IN REACH, FAMILY AT BEDSIDE.
--- NOTE | 2018-09-23 16:48 | NUR ---
PT RESTING COMFORTABLY, DENIES NEEDS OR PAIN. TRB IN PLACE, DRESSING REMAINS CDI NO BLEEDING OR SWELLING NOTED. R GROIN DRESSING CDI NO BLEEDING OR HEMATOMA NOTED. CALL LIGHT IN REACH. REPORT GIVEN TO SANDRA GARDINER RN TO RESUME CARE
--- NOTE | 2018-09-23 17:15 | NUR ---
PATIENT RESTING, VSS ON 1L NC. RIGHT GROIN DRESSING IS CDI, NO S/S OF BLEEDING OR HEMATOMA. 3CC OF AIR REMOVED FROM TR BAND. NO S/S OF BLEEDING OR HEMATOMA.
--- NOTE | 2018-09-23 17:45 | NUR ---
PATIENT AWAKE, VSS ON ROOM AIR. RIGHT GROIN DRESSING IS CDI, NO S/S OF BLEEDING OR HEMATOMA. RIGHT TR BAND IN PLACE, 3CC OF AIR REMOVED, NO S/S OF BLEEDING OR HEMATOMA.
--- NOTE | 2018-09-23 18:15 | NUR ---
PATIENT TAKEN VIA WHEELCHAIR TO BATHROOM TO VOID, NO DIFFICULTIES. VSS ON ROOM AIR. RIGHT TR BAND IN PLACE, NO S/S OF BLEEDING OR HEMATOMA. RIGHT GROIN DRESSING IS CDI, NO S/S OF BLEEDING OR HEMATOMA.
--- NOTE | 2018-09-23 18:20 | NUR ---
EDUCATION GIVEN TO PATIENT AND DAUGHTER REGARDING DISCHARGE INSTRUCTIONS AND MEDICATIONS, ALL QUESTIONS ANSWERED. DRESSING APPLIED TO RIGHT RADIAL SITE, NO S/S OF BLEEDING OR HEMATOMA. RIGHT GROIN DRESSING IS CDI, NO S/S OF BLEEDING OR HEMATOMA.
--- NOTE | 2018-09-23 18:30 | NUR ---
PATIENT TRANSPORTED VIA WHEELCHAIR TO CAR WITH FAMILY DRIVING, ALL BELONGINGS WITH PATIENT.
== END 2018-09-23 18:30 | disposition home or self-care (01) ==
LOC: D.CATH 11:37
PROVIDERS: Internal Medicine Cardiovascular Disease
DX: I25.110 Atherosclerotic heart disease of native coronary artery with unstable angina pectoris (principal); Z01.812 Encounter for preprocedural laboratory examination

== ENCOUNTER 2019-08-26 06:18 | Outpatient (CLI) | payer MEDICARE, BC ==
[~2019-08-26] VITALS: Ht 163.8 cm; Wt 74.5 kg
--- NOTE | ~2019-08-26 | HEMODYNAMI ---
PATIENT:VIOLET FALCON MEDICAL RECORD: [id number] : 35 LOCATION:[facility] ADMISSION DATE: 08/26/19 Generatedon:08/26/201910:01 Patient name: VIOLET FALCON Patient #: [id number] SSN: DO B: 1935 Date of study: 08/26/2019 Page: Of Hemodynamic Procedure Report Patient Data Patient Demographics Procedure consent was obtained First Name: VIOLET Gender: Female Last Name: TERRIE : 1935 Middle Initial: R Age: 84 year(s) Patient #: [id number] Race: Unknown Additional ID: [id number] Contact details [address]: [address] [place] [address] State: [place] City: [place] Zip code: [address] Past Medical History Allergies: No known allergies Admission Admission Data Admission Date: 08/26/2019 Admission Time: 6:18 Arrival Date: 08/26/2019 Arrival Time: 0:00 Admit Source: Other Insurance Payor: Private health insurance [facility] #: [id number] Height (in.): 64.5 BSA: 1.81 (m2) Height (cm.): 163.83 BMI: 27.77 (kg/m2) Weight (lbs.): 164.33 Weight (kg.): 74.54 Lab Results Lab Result Date: 08/26/2019 Lab Result Time: 0:00 Biochemistry Name Units Result Min Max BUN mg/dl 39 --(----)-* 7 18 Creatinine mg/dl 1.7 --(----)-* 0.6 1.3 eGFR ml/min 30 *-(----)-- 90 120 NONAFRICAN CBC Name Units Result Min Max Hematocrit % 40.2 -*(----)-- 42 54 Hemoglobin g/dl 13.5 --(*---)-- 13.5 17.5 Procedure Procedure Types Cath Procedure Diagnostic Procedure [facility] Coronaries only Sedation Charges Moderate Sedation up to 30 minutes PCI Procedure Coronary Stent Coronary Stent Initial Hemochron ACT Test Procedure Description Procedure Date Procedure Date: 08/26/2019 Procedure Start Time: 9:24 Procedure End Time: 10:00 Procedure Staff Name Function Sohail Ryan MD Performing Physician Carline Trimble RT Monitor Tiara Palacios RT Monitor Carolyn Castro RN Nurse Jennifer Verdugo RT Scrub Deuce Gallagher RT Scrub Indication Chest pain Procedure Data Cath Procedure Fluoroscopy Diagnostic fluoroscopy Total fluoroscopy Time: 6.8 time: 6.8 min min Diagnostic fluoroscopy Total fluoroscopy dose: 598 dose: 598 mGy mGy Contrast Material Contrast Material Type Amount (ml) Isovue 370 66 Entry Location Entry Primary Successful Side Size Upsize Upsize Entry Closure Succes sful Closure Location (Fr) 1 (Fr) 2 (Fr) Remarks Device Remarks Femoral Right 5 Fr 6 Fr Exoseal artery Short Estimated blood loss: 10 ml Diagnostic catheters Device Type Used For End Catheter Placement MULTIPACK JL 4.0 5Fr Procedure catheter MULTIPACK 3DRC 5Fr Procedure catheter Procedure Complications No complications Procedure Medications Medication Administration Route Dosage Oxygen etCO2 Nasal cannula 2 l/min Lidocaine 2% added to field 20 Heparin Flush Bag added to field 2 bags (1000units/500ml NS) 0.9% NaCl I.V. 100 ml/hr Versed I.V. 1 mg Fentanyl I.V. 50 mcg Versed I.V. 1 mg Fentanyl I.V. 50 mcg Heparin Bolus I.V. 7500 units Hemodynamics Rest BSA: 1.81 (m2) HGB: 13.5 (g/dl) O2 Consumption: Estimated: 160.15 (ml/min) O2 Co nsumption indexed: Estimated:88.48 (ml/min/m) Heart Rate: 68 (bpm) Snapshots Pre Cath Intra NCS Post Cath Vital Signs Time Heart Resp SPO2 etCO2 NIBP (mmHg) Rhythm Pain Sedation Rate (ipm) (%) (mmHg) Status Level (bpm) 9:10:46 68 18 95 0 186/70(140) NSR 0 (11) 10(A) , No pain 9:15:13 68 16 94 25.9 171/67(128) NSR 0 (11) 10(A) , No pain 9:19:39 60 18 96 0 144/55(107) NSR 0 (11) 10(A) , No pain 9:24:10 58 13 96 0 128/46(104) NSR 0 (11) 10(A) , No pain 9:28:32 52 12 95 0 122/52(87) NSR 0 (11) 9(A) , No pain 9:32:48 52 16 95 8.9 124/59(103) NSR 0 (11) 9(A) , No pain 9:37:10 59 12 97 14.8 119/49(91) NSR 0 (11) 9(A) , No pain 9:41:29 58 12 97 32.6 136/53(92) NSR 0 (11) 9(A) , No pain 9:45:51 62 13 97 19.2 126/51(96) NSR 0 (11) 9(A) , No pain 9:50:11 62 12 97 31.1 131/53(91) NSR 0 (11) 9(A) , No pain 9:54:31 68 14 97 20.8 139/59(101) NSR 0 (11) 10(A) , No pain 9:58:51 64 12 97 16.3 142/58(111) NSR 0 (11) 10(A) , No pain Medications Time Medication Route Dose Verified Delivered Reason Notes Effectiveness by by 9:04:46 Oxygen etCO2 2 Sohail Buffie used for Nasal l/min Connor Castro RN procedure cannula 9:04:53 Lidocaine 2% added 20ml Sohail Sohail for local to vial Connor Ryan MD anesthetic field 9:05:02 Heparin Flush added 2 Sohail Sohail used for Bag to bags Connor Ryan MD procedure (1000units/500ml field NS) 9:05:16 0.9% NaCl I.V. 100 Sohail Buffie Per physician ml/hr Connor Castro RN 9:24:52 Versed I.V. 1 mg Sohail Buffie for sedation Connor Castro RN 9:24:56 Fentanyl I.V. 50 Sohail Buffie for sedation mcg Connor Castro RN 9:38:41 Versed I.V. 1 mg Sohail Buffie for sedation Connor Castro RN 9:38:45 Fentanyl I.V. 50 Sohail Buffie for sedation mcg Connor Castro RN 9:47:29 Heparin Bolus I.V. 7500 Sohail Buffie for verifi ed units Connor Castro RN anticoagulation with dr ryan Procedure Log Time Note 9::17 --------ALL STOP TIME OUT------ 9:17: Final Timeout: patient, procedure, and site verified with staff and physician. All members of the team are in agreement. 9:17:23 Physical assessment completed. ASA score P 2 - A patient with mild systemic disease as per Sohail Ryan MD. 9:17:24 3b) 30-44 Moderately reduced kidney function. 9:17:24 Maximum allowable contrast dose (3.7 X eGFR X 0.75)83 ml. 9:17:25 Fire Safety Assessment: A--An alcohol-based skin anteseptic being used preoperatively., C--Open oxygen or nitrous oxide is being used., D--An ESU, laser, or fiber-optic light is being used. 9:03:27 Correct patient and procedure confirmed by team. 8:57:29 Diagnostic Cath Status : Elective 8:58:00 Indication : Chest pain 9:00:08 Carline Trimble RT(R) sent for patient. Start room use. 9:02:27 Patient received from Pre/Post Procedure Room to CCL 1 Alert and oriented. Tansferred to table in Supine position. 9:02:30 Signed procedure consent form obtained from patient. 9:02:31 Warm blankets applied, and kevyn hugger turned on for patient comfort. 9:04:46 Oxygen 2 l/min etCO2 Nasal cannula was administered by Carolyn Castro RN; used for procedure; Verbal order read back and verified. 9:04:53 Lidocaine 2% 20ml vial added to field was administered by Sohail Ryan MD; for local anesthetic; Verbal order read back and verified. 9:05:02 Heparin Flush Bag (1000units/500ml NS) 2 bags added to field was administered by Sohail Ryan MD; used for procedure; Verbal order read back and verified. 9:05:16 0.9% NaCl 100 ml/hr I.V. was administered by Carolyn Castro RN; Per physician; Verbal order read back and verified. 9:07:01 Pre procedure: right dorsailis pedis pulse 2+ Normal; easily identifiable; not easily obliterated 9:07:09 Patient pain scale 1/10 shortness of breath. 9:07:16 IV patent on arrival in right antecubital with 0.9% NaCl at O. 9:07:40 Lab Result : BUN 39 mg/dl 9::40 Lab Result : Creatinine 1.7 mg/dl 9:07:40 Lab Result : eGFR NONAFRICAN 30 ml/min 9:07:40 Lab Result : Hemoglobin 13.5 g/dl 9:07:40 Lab Result : Hematocrit 40.2 % 9:07:46 Lab results completed and on chart. 9:07:56 Stress Test: no; N/A ? 9:08:01 Risk of Mortality: 1.4 9:08:04 Risk of blood transfusion: 2.4 9:08:08 Risk of JOHN: 5.6 9:08:14 Right groin area was prepped with chlora-prep and draped in sterile fashion 9:08:15 Alarms reviewed by R. N. 9:08:15 Sharps counted by scrub and verified by R.N. 9:08:23 Time tracking: Regular hours (M-F 7:00 - 5:00) 9:08:28 Plan of Care:Hemodynamics will remain stable., Cardiac rhythm will remain stable., Comfort level will be maintained., Respiratory function will remain adequate., Patient/ family verbilizes understanding of procedure., Procedure tolerated without complication., Recovers from procedure without complications.. 9:08:30 ECG and BP/O2 sat monitors applied to patient. 9:08:31 Vital chart was started 9:08:37 H&P Date Dictated: 08/26/2019 Within 30 days and on chart.. 9:08:38 Pre-procedure instructions explained to patient. 9:08:38 Pre-op teaching completed and patient verbalized understanding. 9:08:41 Family in waiting room. 9:08:42 Patient NPO since Midnight. 9:08:55 Patient allergic to No known allergies 9:08:58 Is the patient allergic to Iodine/contrast media? No. 9:09:00 Was the patient premedicated? Yes 9:09:02 Is patient on blood thinner?Yes 9:09:05 ACC The patient was administered the following blood thiners within the last 24 hours: ACCPlavix 9:09:08 Patient diabetic? No. 9:09:10 If diabetic: On Metformin? N/A 9:09:12 Patient not . Patient is over age 55. 9:09:13 ----Pre-sedation anethsthesia assessment.---- 9:09:17 Previous problem with sedation/anesthesia? No ? 9:09:21 Snore? Yes 9:09:23 Sleep apnea? Yes 9:09:24 Deviated septum? No 9:09:25 Opens mouth fully? Yes 9:09:27 Sticks out tongue? Yes 9:09:29 Airway obstruction? No ? 9:09:33 Dentures? No ? 9:09:43 Full Disclosure recording started 9:09:49 Admit Source: Other 9:11:50 Arrival Date: 08/26/2019 12:00:00 AM 9:11:53 Patient Height : 64.5 inches 9:12:00 Patient Weight : 164.33 lbs 9:12:07 Insurance Payor : Private health insurance 9:12:29 Baseline sample Acquired. 9:12:33 Rhythm: sinus rhythm 9:12:38 Use device set Femoral Dx 9:12:39 ACIST Syringe (82057) opened to sterile field. 9:12:40 Bag Decanter (2002S) opened to sterile field. 9:12:41 Medline Cath Pack ([id number]) opened to sterile field. 9:12:42 ACIST Hand Control (25839) opened to sterile field. 9:12:43 ACIST Manifold (31492) opened to sterile field. 9:12:45 SHEATH 5FR [place] (LOM617) opened to sterile field. 9:12:46 EMERALD Guide Wire (112-217) opened to sterile field. 9:12:48 DIAGNOSTIC Multipack 5Fr catheter set (WG4391) opened to sterile field. 9:12:58 Right groin site verified by team. 9:13:22 Sedation plan: IV Moderate Sedation Medication:Versed, Fentanyl 9:24:43 Procedure started. 9:24:52 Versed 1 mg I.V. was administered by Carolyn Castro RN; for sedation; Verbal order read back and verified. 9:24:56 Fentanyl 50 mcg I.V. was administered by Carolyn Castro RN; for sedation; Verbal order read back and verified. 9:24:58 Local anesthetic to right femoral artery with Lidocaine 2% by Sohail Ryan MD.INITIAL ACCESS ONLY 9:30:47 MICROPUNCTURE 4FR Cook (H52489) opened to sterile field. 9:30:56 Access obtained with 4Fr micropunture. 9:31:38 A 5 Fr sheath was inserted into the Right Femoral artery 9:37:02 A MULTIPACK JL 4.0 5Fr catheter was advanced over the wire and used for Procedure. 9:37:46 LCA angiography performed. 9:38:41 Versed 1 mg I.V. was administered by Carolyn Castro RN; for sedation; Verbal order read back and verified. 9:38:45 Fentanyl 50 mcg I.V. was administered by Carolyn Castro RN; for sedation; Verbal order read back and verified. 9:40:24 Catheter exchanged over wire. 9:40:31 A MULTIPACK 3DRC 5Fr catheter was advanced over the wire and used for Procedure. 9:41:20 RCA angiography performed. 9:41:41 ACCDominant side:Right 9:41:48 Catheter exchanged over wire. 9:44:02 TUBING High Pressure Extension Tubing (Connor) ([id number]) opened to sterile field. 9:44:04 SHEATH 6FR [place] (NSP509) opened to sterile field. 9:44:06 BMW 300cm Straight Walker 2 wire (0970510) opened to sterile field. 9:44:12 INFLATOR Merit BasixCompak (OS7637) opened to sterile field. 9:44:27 GUIDE 6FR XBLAD 3.5 catheter ([id number]) opened to sterile field. 9:44:52 Proceeding to intervention. 9:45:05 Sheath upsized to a 6 Fr Short. 9:45:19 6 Fr xblad 3.5 guide catheter was inserted over the wire 9:45:25 bmw 300 wire advanced. 9:46:40 Pre PCI Site: [place] mLAD has 80% stenosis. 9:47:29 Heparin Bolus 7500 units I.V. was administered by Carolyn Castro RN; for anticoagulation; verified with dr ryan Verbal order read back and verified. 9:48:15 Wire advanced across lesion. 9:52:30 Place stent Inflation Number: 1 A CHRISTIE OTW 3.0 x 26 stent ([id number]) was prepped and advanced across the Mid LAD . The stent was deployed at 13 DAVE for 0:00 (min:sec) . 9:54:09 Stent catheter was removed intact over wire. 9:54:09 Wire removed. 9:54:10 Guide catheter removed. 9:54:20 Sheath removed intact; hemostasis achieved with Exoseal to the Right Femoral artery. 9:54:23 EXOSEAL 6Fr (EX600) opened to sterile field. 9:56:09 Procedure ended.(Physican Out) 9:56:14 Fluoroscopy time 06.80 minutes. 9:56:19 Fluoroscopy dose: 598 mGy 9:56:19 Flurop Dose total: 598 9:56:29 Dose Area Product 77545 mGy/cm. 9:56:42 Contrast amount:Isovue 370 66ml. 9:56:46 Maximum allowable dose exceeded? No. 9:56:55 Sharps counted by scrub and verified by R.N. 9:57:04 Post-op/insertion site Right Femoral artery dressed using a 4 x 4 and Tegaderm. 9:57:11 Post right femoral artery:stable, clean and dry, unstable 9:57:19 Post Procedure Pulses reassessed and unchanged 9:57:22 Post procedure: right dorsailis pedis pulse 2+ Normal; easily identifiable; not easily obliterated. 9:57:25 Post-procedure physical assessment completed. ASA score P 2 - A patient with mild systemic disease as per Sohail Ryan MD. 9:57:29 Post procedure rhythm: unchanged. 9:57:31 Estimated blood loss: 10 ml 9:57:33 Post procedure instruction explained to patient.Patient verbalizes understanding. 9:57:34 Patient needs reinforcement of post procedure teaching. 9:59:19 Procedure type changed to Cath procedure, Diagnostic procedure, C, Coronaries only, Sedation Charges, Moderate Sedation up to 30 minutes, PCI procedure, Coronary Stent, Coronary Stent Initial, Hemochron ACT Test 9:59:27 ACT drawn and resulted at OUT OF RANGE seconds. (normal therapeutic range 180-240 seconds). 9:59:34 Procedure and supply charges have been captured, reviewed, submitted and are correct. 10:00:13 Procedure Complication : No complications 10:00:26 Vital chart was stopped 10:00:29 [facility] Findings: MVD- PCI performed (see procedure note) 10:00:31 Operative report dictated upon procedure completion. 10:00:31 See physician's report for complete and final results. 10:00:33 Report given to Pre/Post Procedure Room. 10:00:36 Patient transfered to Pre/Post Procedure Room with Stretcher. 10:00:39 Procedure ended. 10:00:39 Full Disclosure recording stopped 10:00:46 ACC-PCI Only Patient was given prescriptions, or instructed by Sohail Ryan MD to start/continue the following medications upon discharge: Plavix 10:00:56 End room use (Document Last) 10:01:20 End room use (Document Last) 10:01:36 End room use (Document Last) Intervention Summary Intervention Notes Time ActionType Lesion and Equipment Action# Pressure Duration Attributes Used 9:52:30 Place stent Mid LAD CHRISTIE OTW 3.0 1 13 00:00 x 26 stent ([id number]) Device Usage Item Name Manufacture Quantity Catalog Hospital Part Current Mini mal Lot# / Number Charge Number Stock Stock Serial# Code ACIST Syringe Acist 1 64600 180286 067204 178417 20 (61150) Medical Systems Inc Bag Decanter Microtek 1 2002S 485769 44948 232962 5 (2002S) Medical Inc. Medline Cath Medline 1 [id number] 271657 90798 984570 5 Pack ([id number]) ACIST Hand Acist 1 62262 880330 673694 324634 5 Control Medical (36770) Systems Inc ACIST Acist 1 09725 162521 496381 686491 5 Manifold Medical (78398) Systems Inc SHEATH 5FR Terumo 1 DDO674 964102 229039 066701 5 [place] (SXB361) EMERALD Guide Cardinal 1 502-455 484563 573321 554439 5 Wire Health (502-455) DIAGNOSTIC Cardinal 1 BB6112 806415 86053 257754 30 Multipack 5Fr Health catheter set (VX2973) MICROPUNCTURE Cook Medical 1 S03537 339484 070976 080053 5 4FR Cook (G56833) MULTIPACK JL Cardinal 1 275748 5 4.0 5Fr Health catheter MULTIPACK Cardinal 1 911218 5 3DRC 5Fr Health catheter TUBING High Merit 1 [id number] 995066 22077 818128 10 Pressure Medical Extension Tubing (Connor) ([id number]) SHEATH 6FR Terumo 1 TRD957 398581 962549 777394 40 [place] (AZE324) BMW 300cm Carpenter 1 8993322 470205 046080 275616 5 Straight Vascular Walker 2 wire (9402989) INFLATOR Merit 1 MR6676 662711 431414 330590 15 [facility] Medical BasixCompak (FV3191) GUIDE 6FR Cardinal 1 [id number] 300482 163802 896214 10 XBLAD 3.5 Health catheter (90683107) CHRISTIE OTW 3.0 Medtronic 1 [id number] 893374 4153464 437962 5 [id number] x 26 stent ([id number]) EXOSEAL 6Fr Cardinal 1 EX600 882693 263573 817101 10 (EX600) Health Signature Audit [place] Stage Time Signature Unsigned Intra-Procedure 08/26/2019 Tiara Palacios 10:01:20 AM RT(R) Intra-Procedure 08/26/2019 Carolyn Castro RN 10:01:36 AM Intra-Procedure 08/26/2019 Sohail Ryan MD 10:01:53 AM [facility] [address] [place] [address]
[~2019-08-26 06:18] MED LIST changes: +BENICAR HCT 401 EAC1 PO; +PRAVACHOL80 MG PO
[2019-08-26] MEDS ORDERED: BENICAR40 MG PO (06:57)
[2019-08-26] MEDS ORDERED: PROTONIX40 MG PO (06:58)
[2019-08-26 07:10] VITALS: BP 202/52; Ht 163.8 cm; Wt 74.5 kg
[2019-08-26 07:22] LABS: BASOPHILS 0.3 % (0-2); HEMATOCRIT 40.2 % (36.0-48.0); HEMOGLOBIN 13.5 g/dL (12-16); IMMATURE GRANULOCYTES 0.1 % (0-5); LYMPHOCYTES 27.7 % (15-50); MCH 29.7 pg (26.0-34.0); MCHC 33.6 g/dL (31.0-37.0); MCV 88.5 fL (80.0-100.0); MEAN PLATELET VOLUME 11.4 fL (7.4-10.4); MONOCYTES 10.1 % (2-11); NEUTROPHILS 57.8 % (40-80); RBC 4.54 10x6/uL (4.00-5.40); RDW 13.9 % (11.5-14.5); WBC 6.7 10x3/uL (4.8-10.8)
[2019-08-26 07:25] LABS: PLATELET COUNT 246 10x3/uL (130-400)
[2019-08-26 07:54] LABS: ANION GAP 15.8 mmol/L (8-16); CALCIUM 9.1 mg/dL (8.5-10.1); CARBON DIOXIDE 25.1 mmol/L (21.0-32.0); CREATININE - SERUM 1.7 mg/dL (0.6-1.3); LDL-HDL RATIO 1.5 ratio (1.5-3.5); POTASSIUM - SERUM 3.9 mmol/L (3.5-5.1)
--- NOTE | 2019-08-26 10:10 | NUR ---
PT ARRIVED BY STRETCHER. PLACED ON MONITORS. ASSESSMENT COMPLETED. VSS AT THIS TIME. FAMILY AT BEDSIDE. DR. PEOPLES ROUNDED AND SPOKE WITH PT'S FAMILY.
--- NOTE | 2019-08-26 10:25 | NUR ---
PT RESTING COMFORTABLY. VSS. FAMILY AT BEDSIDE. CALL LIGHT WITHIN REACH. RIGHT GROIN DRESSING C/D/I. NO S/S OF HEMATOMA NOTED.
--- NOTE | 2019-08-26 11:00 | NUR ---
PT ON BEDPAN. UNABLE TO VOID. STATES "I CAN NEVER USE A BEDPAN". SHE IS NOT IN DISTRESS AT THIS TIME. DOES WANT TO WAIT TO VOID. RIGHT GROIN DRESSING C/D/I. NO S/S OF HEMATOMA NOTED. VSS. FAMILY AT BEDSIDE. PT TOLERATING SIPS OF WATER. DENIES NAUSEA/PAIN AT THIS TIME.
--- NOTE | 2019-08-26 11:30 | NUR ---
RIGHT GROIN DRESSING C/D/I. NO S/S OF HEMATOMA NOTED. CALL LIGHT WITHIN REACH. VSS.
--- NOTE | 2019-08-26 11:53 | NUR ---
PT ON BEDPAN. VOIDED APPROX 50cc OF CLEAR YELLOW URINE NOTED. ERMIAS-CARE GIVEN. PT BACK TO SUPINE POSITION. NO OTHER NEEDS AT THIS TIME. CALL LIGHT WITHIN REACH. FAMILY AT BEDSIDE.
--- NOTE | 2019-08-26 12:30 | NUR ---
RIGHT GROIN DRESSING C/D/I. NO S/S OF HEMATOMA NOTED. CALL LIGHT WITHIN REACH. VSS. FAMILY AT BEDSIDE AT THIS TIME. NO NEEDS. WILL CONTINUE TO MONITOR.
--- NOTE | 2019-08-26 13:00 | NUR ---
PT ON BEDPAN. VOIDED APPROX 100cc OF CLEAR YELLOW URINE. ERMIAS-CARE GIVEN. RIGHT GROIN DRESSING C/D/I. NO S/S OF HEMATOMA NOTED. HEAD OF BED INC TO 30 DEGREES. TOLERATED WELL. SET UP WITH SANDWICH TRAY AND DRINK. DENIES NAUSEA/PAIN AT THIS TIME. VSS.
--- NOTE | 2019-08-26 13:30 | NUR ---
PT SITTING UP AND EATING. DENIES NAUSEA/PAIN AT THIS TIME. FAMILY AT BEDSIDE. VSS.
--- NOTE | 2019-08-26 13:50 | NUR ---
PIV D/C'D WITH CATH TIP INTACT. TOLERATED WELL. VSS. RIGHT GROIN DRESSING C/D/I. NO S/S OF HEMATOMA NOTED. PT INSTRUCTED TO GET UP AND DRESSED AT THIS TIME. FAMILY AT BEDSIDE TO ASSIST.
--- NOTE | 2019-08-26 14:00 | NUR ---
DISCUSSED DISCHARGE INSTRUCTIONS WITH PT AND PT'S FAMILY. THEY VOICED UNDERSTANDING.
--- NOTE | 2019-08-26 14:05 | NUR ---
PT TAKEN TO RESTROOM BY WHEELCHAIR. NO S/S OF DISTRESS NOTED. PT VOIDED WITHOUT DIFFICULTY. TAKEN OUT TO VEHICLE BY WHEELCHAIR. NO S/S OF DISTRESS NOTED. ALL BELONGINGS AND PAPERWORK IN HAND.
== END 2019-08-26 14:05 | disposition home or self-care (01) ==
LOC: D.CATH 06:18
PROVIDERS: ATTEND Internal Medicine Cardiovascular Disease
DX: I20.0 Unstable angina (principal); R53.83 Other fatigue; R07.9 Chest pain, unspecified; I10 Essential (primary) hypertension; Z95.5 Presence of coronary angioplasty implant and graft; K21.9 Gastro-esophageal reflux disease without esophagitis
CPT/HCPCS: 93454; C9600

== ENCOUNTER 2019-10-25 10:32 | Inpatient (IN) | payer MEDICARE, BC ==
[~2019-10-25] VITALS: Ht 152.4 cm; Wt 75.5 kg
--- NOTE | ~2019-10-25 | HEMODYNAMI ---
PATIENT:VIOLET FALCON MEDICAL RECORD: [id number] : 35 LOCATION:[facility] ADMISSION DATE: 10/25/19 Generatedon:10/25/201914:13 Patient name: VIOLET FALCON Patient #: [id number] SSN: [id number] : 1935 Date of study: 10/25/2019 Page: Of Hemodynamic Procedure Report Patient Data Patient Demographics Procedure consent was obtained First Name: VIOLET Gender: Female Last Name: TERRIE : 1935 Middle Initial: R Age: 84 year(s) Patient #: [id number] Race: SSN: [id number] Additional ID: [id number] Contact details Address: [address] [place] [address] State: [place] City: [place] Zip code: [address] Past Medical History Allergies: No known allergies Admission Admission Data Admission Date: 10/25/2019 Admission Time: 10:32 Arrival Date: 10/25/2019 Arrival Time: 0:00 Admit Source: Other Insurance Payor: Medicare [facility] #: [id number] Height (in.): 64.5 BSA: 1.82 (m2) Height (cm.): 163.83 BMI: 28.22 (kg/m2) Weight (lbs.): 167 Weight (kg.): 75.75 Lab Results Lab Result Date: 10/25/2019 Lab Result Time: 0:00 Biochemistry Name Units Result Min Max BUN mg/dl 31 --(----)-* 7 18 Creatinine mg/dl 1.2 --(---*)-- 0.6 1.3 eGFR ml/min 45 *-(----)-- 90 120 NONAFRICAN CBC Name Units Result Min Max Hematocrit % 39.3 -*(----)-- 42 54 Hemoglobin g/dl 13.2 -*(----)-- 13.5 17.5 Procedure Procedure Types Cath Procedure Diagnostic Procedure Sedation Charges Moderate Sedation up to 30 minutes PCI Procedure Coronary Stent Coronary Stent Initial Hemochron ACT Test Procedure Description Procedure Date Procedure Date: 10/25/2019 Procedure Start Time: 13:39 Procedure End Time: 14:10 Procedure Staff Name Function Sohail Ryan MD Performing Physician Carole Zaman RN Nurse Katlyn Rascon RT Scrub Jennifer Verdugo RT Monitor Procedure Data Cath Procedure Fluoroscopy Diagnostic fluoroscopy Total fluoroscopy Time: 4.9 time: 4.9 min min Diagnostic fluoroscopy Total fluoroscopy dose: 600 dose: 600 mGy mGy Contrast Material Contrast Material Type Amount (ml) Isovue 300 67 Entry Location Entry Primary Successful Side Size Upsize Upsize Entry Closure Succes sful Closure Location (Fr) 1 (Fr) 2 (Fr) Remarks Device Remarks Femoral Right 6 Fr Exoseal artery Short Estimated blood loss: 10 ml Procedure Complications No complications Procedure Medications Medication Administration Route Dosage 0.9% NaCl I.V. 100 ml/hr Oxygen etCO2 Nasal cannula 2 l/min Lidocaine 2% added to field 20 Heparin Flush Bag added to field 2 bags (1000units/500ml NS) Versed I.V. 2 mg Fentanyl I.V. 50 mcg Fentanyl I.V. 50 mcg Heparin Bolus I.V. 7500 units Hemodynamics Rest BSA: 1.82 (m2) HGB: 13.2 (g/dl) O2 Consumption: Estimated: 152.97 (ml/min) O2 Co nsumption indexed: Estimated:84.05 (ml/min/m) Heart Rate: 57 (bpm) Snapshots Pre Cath Intra NCS Post Cath Vital Signs Time Heart Resp SPO2 etCO2 NIBP (mmHg) Rhythm Pain Sedation Rate (ipm) (%) (mmHg) Status Level (bpm) 13:14:30 57 10 99 32.7 Measuring SB 0 (11) 10(A) , No pain 13:15:13 56 11 99 32 200/67(146) SB 0 (11) 10(A) , No pain 13:19:54 50 16 98 0 146/59(113) SB 0 (11) 10(A) , No pain 13:24:53 50 16 98 0 Measuring SB 0 (11) 10(A) , No pain 13:25:11 49 16 98 0 156/54(117) SB 0 (11) 10(A) , No pain 13:29:37 49 13 98 0 163/53(115) SB 0 (11) 10(A) , No pain 13:34:05 51 13 98 0 156/52(110) SB 0 (11) 10(A) , No pain 13:38:30 51 17 98 31.2 165/63(127) SB 0 (11) 9(A) , No pain 13:43:29 57 17 97 33.4 Measuring SB 0 (11) 9(A) , No pain 13:44:06 57 18 97 27.5 173/71(135) SB 0 (11) 9(A) , No pain 13:48:26 51 12 96 10.4 166/66(124) SB 0 (11) 9(A) , No pain 13:52:42 50 13 96 0 143/64(108) SB 0 (11) 9(A) , No pain 13:57:04 48 12 96 0 145/54(106) SB 0 (11) 9(A) , No pain 14:02:03 52 18 97 15.6 Measuring SB 0 (11) 9(A) , No pain 14:02:19 52 19 96 26.7 150/63(111) SB 0 (11) 9(A) , No pain 14:06:33 54 9 96 9.6 153/65(130) SB 0 (11) 10(A) , No pain 14:11:57 54 5 96 34.9 174/56(125) SB 0 (11) 10(A) , No pain Medications Time Medication Route Dose Verified Delivered Reason Notes Effectiveness by by 13:12:58 0.9% NaCl I.V. 100 Sohail Carole used for ml/hr Connor Zaman gis scientist 13:13:04 Oxygen etCO2 2 Sohail Carole used for Nasal l/min Connor Zaman procedure cannula RN 13:13:08 Lidocaine 2% added 20ml Sohail Sohail for local to vial Connor Ryan MD anesthetic field 13:13:12 Heparin Flush added 2 Sohail Sohail used for Bag to bags Connor Ryan MD procedure (1000units/500ml field NS) 13:25:22 Versed I.V. 2 mg Sohail Carole for sedation Connor Zaman RN 13:25:33 Fentanyl I.V. 50 Sohail Carole for sedation mcg Connor Zaman RN 13:30:56 Fentanyl I.V. 50 Sohail Carole for sedation mcg Connor Zaman RN 13:53:09 Heparin Bolus I.V. 7500 Sohail Carole for verif ied units Connor Zaman anticoagulation with Dr. MAIK Ryan Procedure Log Time Note 13:04:23 Admit Source: Other 13:04:47 Procedure Status Elective Heart Cath (OP). 13:04:53 Carole Zaman RN sent for patient. Start room use. 13:04:54 Time tracking: Regular hours (M-F 7:00 - 5:00) 13:04:59 Plan of Care:Hemodynamics will remain stable., Cardiac rhythm will remain stable., Comfort level will be maintained., Respiratory function will remain adequate., Patient/ family verbilizes understanding of procedure., Procedure tolerated without complication., Recovers from procedure without complications.. 13:05:14 Patient received from Pre/Post Procedure Room to CCL 2 Alert and oriented. Tansferred to table in Supine position. 13:05:16 Signed procedure consent form obtained from patient. 13:05:17 Warm blankets applied, and kevyn hugger turned on for patient comfort. 13:05:30 H&P Date Dictated: 10/15/2019 Within 30 days and on chart., H&P Addendum completed by physician on day of procedure. (MUST COMPLETE FOR ALL OUTPATIENTS). 13:05:31 Pre-procedure instructions explained to patient. 13:07:14 3a) 45-59 Moderately reduced kidney function. 13:07:18 Maximum allowable contrast dose (3.7 X eGFR X 0.75)124 ml. 13:09:43 Correct patient and procedure confirmed by team. 13:10:39 Lab Result : BUN 31 mg/dl 13:10:39 Lab Result : Hemoglobin 13.2 g/dl 13:10:39 Lab Result : Hematocrit 39.3 % 13:10:39 Lab Result : Creatinine 1.2 mg/dl 13:10:39 Lab Result : eGFR NONAFRICAN 45 ml/min 13:10:55 Arrival Date: 10/25/2019 12:00:00 AM 13:11:13 Insurance Payor : Medicare 13:11:36 Patient Height : 64.5 inches 13:11:40 Patient Weight : 167 lbs 13:12:41 Vital chart was started 13:12:58 0.9% NaCl 100 ml/hr I.V. was administered by Carole Zaman RN; used for procedure; Verbal order read back and verified. 13:13:04 Oxygen 2 l/min etCO2 Nasal cannula was administered by Carole Zaman RN ; used for procedure; Verbal order read back and verified. 13:13:08 Lidocaine 2% 20ml vial added to field was administered by Sohail Ryan MD ; for local anesthetic; Verbal order read back and verified. 13:13:12 Heparin Flush Bag (1000units/500ml NS) 2 bags added to field was administered by Sohail Ryan MD; used for procedure; Verbal order read back and verified. 13:14:31 ECG and BP/O2 sat monitors applied to patient. 13:14:32 Baseline sample Acquired. 13:14:37 Rhythm: sinus rhythm 13:14:38 Full Disclosure recording started 13:14:39 - 13:16:32 Lab results completed and on chart. 13:18:40 Pre-op teaching completed and patient verbalized understanding. 13:18:49 Family in waiting room. 13:19:00 Patient NPO since Midnight. 13:19:11 Patient allergic to No known allergies 13:19:16 Is the patient allergic to Iodine/contrast media? No. 13:19:18 Was the patient premedicated? Yes 13:19:21 Is patient on blood thinner?Yes 13:19:29 ACC The patient was administered the following blood thiners within the last 24 hours: ACCPlavix 13:20:23 Patient diabetic? No. 13:20:27 ----Pre-sedation anethsthesia assessment.---- 13:20:32 Previous problem with sedation/anesthesia? No ? 13:20:35 Snore? Yes 13:20:38 Sleep apnea? Yes 13:20:41 Deviated septum? No 13:20:44 Opens mouth fully? Yes 13:20:46 Sticks out tongue? Yes 13:20:51 Airway obstruction? No ? 13:20:55 Dentures? No ? 13:22:44 Pre procedure: right dorsailis pedis pulse 2+ Normal; easily identifiable; not easily obliterated 13:23:03 IV patent on arrival in left forearm with 0.9% NaCl at [facility]. 13:23:57 Right groin area was prepped with chlora-prep and draped in sterile fashion 13:23:59 Alarms reviewed by R. N. 13:24:00 Sharps counted by scrub and verified by R.N. 13:24: Physician arrived 13:24:02 --------ALL STOP TIME OUT------ 13::03 Final Timeout: patient, procedure, and site verified with staff and physician. All members of the team are in agreement. 13:24:07 Right groin site verified by team. 13:24:14 Fire Safety Assessment: A--An alcohol-based skin anteseptic being used preoperatively., C--Open oxygen or nitrous oxide is being used., D--An ESU, laser, or fiber-optic light is being used. 13:24:25 Physical assessment completed. ASA score P 2 - A patient with mild systemic disease as per Sohail Ryan MD. 13:24:34 Sedation plan: IV Moderate Sedation Medication:Versed, Fentanyl 13:24:41 Use device set Femoral Dx 13:24:53 ACIST Syringe (27627) opened to sterile field. 13:24:57 Bag Decanter (2002) opened to sterile field. 13:24:58 Medline Cath Pack ([id number]) opened to sterile field. 13:25:00 ACIST Hand Control (85747) opened to sterile field. 13:25:01 ACIST Manifold (21082) opened to sterile field. 13:25:04 Tegaderm 4 x 4 (1626W) opened to sterile field. 13:25:06 SHEATH 5FR [place] (FPZ784) opened to sterile field. 13:25:07 EMERALD Guide Wire (765-964) opened to sterile field. 13:25:22 Versed 2 mg I.V. was administered by Carole Zaman RN; for sedation; Verbal order read back and verified. 13:25:33 Fentanyl 50 mcg I.V. was administered by Carole Zaman RN; for sedation ; Verbal order read back and verified. 13:30:56 Fentanyl 50 mcg I.V. was administered by Carole Zaman RN; for sedation ; Verbal order read back and verified. 13:31:04 Zero performed for pressure channel P1 13:31:12 Zero performed for pressure channel P1 13:36:55 Procedure started. 13:37:39 SHEATH 6FR [place] (HKX236) opened to sterile field. 13:37:52 Use device set CONNOR PCI 13:38:07 INFLATOR Merit BasixCompak (GR5430) opened to sterile field. 13:38:13 BMW 300cm [place] 2 J wire ([id number]) opened to sterile field. 13:38:52 TUBING High Pressure Extension Tubing (Connor) (JJ3084N) opened to sterile field. 13:39:26 Local anesthetic to right femoral artery with Lidocaine 2% by Sohail escamilla MD.INITIAL ACCESS ONLY 13:47:39 A 6 Fr Short sheath was inserted into the Right Femoral artery 13:48:20 GUIDE 6FR JR 4.0 catheter ([id number]) opened to sterile field. 13:52:40 6 Fr JR4 guide catheter was inserted over the wire 13:53:09 Heparin Bolus 7500 units I.V. was administered by Carole Zaman RN; for anticoagulation; verified with Dr. Ryan Verbal order read back and verified. 13:53:11 RCA angiography performed. 13:53:18 Injector settings: Ml/sec: 3, Volume: 6, 13:54:19 ACC Pre-intervention BENTLEY Flow is 3. 13:55:34 Pre PCI Site: [place] dRCA has 80% stenosis. 13:55:50 3OO BMW wire advanced. 13:55:52 Wire advanced across lesion. 13:57:43 Place stent Inflation Number: 1 A CHRISTIE RX 3.0 x 30 stent ([id number]) was prepped and advanced across the Dist RCA . The stent was deployed at 16 DAVE for 0:00 (min:sec) . 13:58:37 Stent catheter was removed intact over wire. 14:01:09 Post PCI Site: [place] dRCA has 0% stenosis. 14:01:40 Place stent Inflation Number: 1 A CHRISTIE RX 3.5 x 15 stent ([id number]) was prepped and advanced across the Mid RCA . The stent was deployed at 14 DAVE for 0:00 (min:sec) . 14:03:05 Stent catheter was removed intact over wire. 14:03:14 ACC Post-intervention BENTLEY Flow is 3. 14:03:27 Post PCI Site: [place] mRCA has 0% stenosis. 14:03:38 Wire removed. 14:03:39 Guide catheter removed. 14:03:45 EXOSEAL 6Fr (EX600) opened to sterile field. 14:04:00 Sheath removed intact; hemostasis achieved with Exoseal to the Right Femoral artery. 14:04:41 Procedure ended.(Physican Out) 14:05:36 Contrast amount:Isovue 300 67ml. 14:05:48 Fluoroscopy time 04.90 minutes. 14:05:55 Flurop Dose total: 600 14:05:55 Fluoroscopy dose: 600 mGy 14:06:04 Dose Area Product 31183 mGy/cm. 14:06:08 Maximum allowable dose exceeded? No. 14:06:10 Sharps counted by scrub and verified by R.N. 14:06:13 Insertion/operative site no bleeding no hematoma. 14:06:17 Post-op/insertion site Right Femoral artery dressed using a 4 x 4 and Tegaderm. 14:06:24 Post right femoral artery:stable 14:06:30 Post Procedure Pulses reassessed and unchanged 14:06:34 Post-procedure physical assessment completed. ASA score P 2 - A patient with mild systemic disease as per Sohail Ryan MD. 14:06:43 Post procedure rhythm: unchanged. 14:06:47 Estimated blood loss: 10 ml 14:06:49 Post procedure instruction explained to patient.Patient verbalizes understanding. 14:06:50 Patient needs reinforcement of post procedure teaching. 14:07:23 ACT drawn and resulted at >400- out of range seconds. (normal therapeutic range 180-240 seconds). 14:08:33 Procedure type changed to Cath procedure, Diagnostic procedure, Sedatio n Charges, Moderate Sedation up to 30 minutes, PCI procedure, Coronary Stent, Coronary Stent Initial, Hemochron ACT Test 14:09:56 Procedure and supply charges have been captured, reviewed, submitted an d are correct. 14:10:04 Procedure Complication : No complications 14:10:07 Vital chart was stopped 14:10:09 [facility] Findings: MVD- PCI performed (see procedure note) 14:10:14 Operative report dictated upon procedure completion. 14:10:15 See physician's report for complete and final results. 14:10:23 Report given to Pre/Post Procedure Room. 14:10:28 Patient transfered to Pre/Post Procedure Room with Stretcher. 14:10:31 Procedure ended. 14:10:31 Full Disclosure recording stopped 14:10:48 End room use (Document Last) Intervention Summary Intervention Notes Time ActionType Lesion and Equipment Used Action# Pressure Duration Attributes 13:57:43 Place stent Dist RCA CHRISTIE RX 3.0 x 1 16 00:00 30 stent ([id number]) 14:01:40 Place stent Mid RCA CHRISTIE RX 3.5 x 1 14 00:00 15 stent ([id number]) Device Usage Item Name Manufacture Quantity Catalog Hospital Part Current [facility] Lot# / Number Charge Number Stock Stock Serial# Code ACIST Syringe Acist 1 74337 498171 479808 625303 20 (98473) Medical Systems Inc Bag Decanter Microtek 1 2002S 352642 47544 185631 5 (2002S) Medical Inc. Medline Cath Medline 1 [id number] 168179 23611 351357 5 Pack ([id number]) ACIST Hand Acist 1 61897 420752 599660 218454 5 Control Medical (42817) Systems Inc ACIST Manifold Acist 1 48315 881038 306418 240476 5 (03178) Medical Systems Inc Tegaderm 4 x 4 3M 1 1626W 216515 356331 175392 5 (1626W) SHEATH 5FR Terumo 1 SOK414 262825 013052 386470 5 [place] (BFZ294) EMERALD Guide Cardinal 1 502-455 862687 035411 293044 5 Wire (502-455) Health SHEATH 6FR Terumo 1 VXI719 167547 356153 579816 40 [place] (IVU941) INFLATOR Merit Merit 1 YQ7475 843782 080571 716808 15 TheVegibox.comHuntsman Mental Health InstituteSyndax Pharmaceuticals Medical (UM8992) BMW 300cm Carpenter 1 [id number] 454509 455721 245847 5 [place] 2 J Vascular wire ([id number]) TUBING High Merit 1 [id number] 742376 74633 958654 10 Pressure Medical Extension Tubing (Ryan) (EN0834L) GUIDE 6FR JR Medtronic 1 RE5OU83 994278 67820 695437 1 4.0 catheter (FJ7UV57) CHRISTIE RX 3.0 x Medtronic 1 [id number] 622219 2419889 984344 5 [id number] 30 stent ([id number]) CHRISTIE RX 3.5 x Medtronic 1 [id number] 876097 2186372 100979 5 [id number] 15 stent ([id number]) EXOSEAL 6Fr Cardinal 1 EX600 285317 246707 491155 10 (EX600) Health Signature Audit [place] Stage Time Signature Unsigned Intra-Procedure 10/25/2019 Jennifer 2:12:25 PM Lucina RIVERA(R) (CV) Intra-Procedure 10/25/2019 Carole Zaman 2:13:03 PM RN Intra-Procedure 10/25/2019 Sohail Ryan MD 2:13:34 PM Signatures Performing Physician : Signature : Sohail Ryan MD Date : Time : Nurse : Carole Zaman RN Signature : Date : Time : Monitor : Jennifer Signature : Lucina RT Date : Time : [facility] [address] [place] [address]
[~2019-10-25 10:32] MED LIST changes: +BENICAR40 MG PO; +PROTONIX40 MG PO
[2019-10-25] MEDS ORDERED: FUROSEMIDE20 MG PO (11:01)
[2019-10-25] MEDS ORDERED: K-TAB10 MEQ PO (11:04)
[2019-10-25 11:15] VITALS: BP 190/58; BMI 28.2
[2019-10-25 11:35] LABS: BASOPHILS 0.4 % (0-2); EOSINOPHILS 4.9 % (0-7); HEMATOCRIT 39.3 % (36.0-48.0); HEMOGLOBIN 13.2 g/dL (12-16); IMMATURE GRANULOCYTES 0.1 % (0-5); LYMPHOCYTES 31.8 % (15-50); MCH 29.9 pg (26.0-34.0); MCHC 33.6 g/dL (31.0-37.0); MCV 88.9 fL (80.0-100.0); MEAN PLATELET VOLUME 11.2 fL (7.4-10.4); NEUTROPHILS 52.8 % (40-80); PLATELET COUNT 229 10x3/uL (130-400); RBC 4.42 10x6/uL (4.00-5.40); RDW 14.2 % (11.5-14.5); WBC 6.8 10x3/uL (4.8-10.8)
[2019-10-25 11:43] LABS: ANION GAP 10.7 mmol/L (8-16); CALCIUM 8.8 mg/dL (8.5-10.1); CREATININE - SERUM 1.2 mg/dL (0.6-1.3); POTASSIUM - SERUM 3.7 mmol/L (3.5-5.1)
[2019-10-25 20:00] VITALS: BP 155/47
[2019-10-25 20:07] VITALS: Ht 152.4 cm; Wt 75.5 kg
[2019-10-26 00:55] VITALS: BP 186/54
[2019-10-26 04:42] VITALS: BP 186/54
--- NOTE | 2019-10-26 09:44 | MORECARE ---
CASE MANAGEMENT DISCHARGE SUMMARY PATIENT: VIOLET FALCON UNIT: [id number] ADM DATE: 10/25/19 AGE: 84 : 35 SEX: F ROOM/BED: D.1309 AUTHOR: JERAMIE,DOC PHYSICIAN: REFERRING PHYSICIAN: NINO PEOPLES M.D. DATE OF SERVICE: 10/26/19 Discharge Plan Patient Name: VIOLET FALCON Facility: [facility]:[place] : 1935 Planned Disposition: Home Anticipated Discharge Date: 10/26/19 Discharge Date: Expected LOS: 1 Initial Reviewer: [email or web address] Initial Review Date: 10/26/2019 Generated: 10/26/19 10:43 am Comments DCP- Discharge Planning Updated by [id number]: Leigh Zamudio on 10/26/19 7:[address] Patient Name: VIOLET FALCON Admission Status: Elective Accout number: [id number] Admission Date: 10-25-2019 : 1935 Admission Diagnosis: Attending: NINO PEOPLES Current LOS: 1 Anticipated DC Date: Planned Disposition: Primary Insurance: [employer] ADV Discharge Planning Comments: CM met with patient to complete initial dc planning assessment. CM educated patient on the CM role and verbal consent given by patient to complete assessment. CM verified patient's address, phone number, and emergency contact phone numbers. Patient lives at home independently. States her sister lives in close proximity and checks on her daily At discharge patient plans to return home and feels this is a safe discharge. Patient states she will resume meals on wheels. CM discussed availability of home health, rehab services, and medical equipment. Patient denied known discharge needs at this time. Transportation provider at discharge will be her Son in law Wilber Munson . DC IMM delivered, explained, signed by the patient, and placed in chart. Signed form also left with patient. Chest Painting Leader: Leigh Zamudio DCPIA - Discharge Planning Initial Assessment Updated by [email or web address]: Leigh Zamudio on 10/26/19 8:32 am * Is the patient Alert and Oriented? Yes * How many steps to enter\exit or inside your home? 5/0 * PCP DR SCHWARTZ * Pharmacy [facility] * Preadmission Environment Home Alone * ADLs Independent * Equipment Cane Walker * List name and contact numbers for known caregivers / representatives who currently or will assist patient after discharge: WILBER MUNSON * Verbal permission to speak to the caregivers and representatives has been obtained from the patient. Yes * Community resources currently utilized Meals on Wheels * Please name any agencies selected above. [facility] IN [facility] * Additional services required to return to the preadmission environment? No * Can the patient safely return to the preadmission environment? Yes * Has this patient been hospitalized within the prior 30 days at any hospital? No Coverage Notice Reviewer: [id number] - Leigh Zamudio Notice Issued Date-Time: 10/26/2019 8:20 Notice Type: IM Discharge Notice Notice Delivered To: Patient Relationship to Patient: Accounts Receivable Associate Name: Delivery Method: HAND - Hand Delivered Leonela Days: Prior Verbal Notification: Recipient Understood Notice: Yes Recipient Signature: Yes Med Rec Note Co-signed by Attending: Coverage Notice Comment: DC IMM delivered, explained, signed by the patient, and placed in chart. Signed form also left with patient. Patient Name: VIOLET FALCON Page [phone] at 0944 All edits/amendments must be made on the electronic document DICTATION DATE: 10/26/19942 WASTE SPECIALIST: ELIZABETH 10/26/19942 RPT#: [id number] DC DATE: STATUS: ADM IN [facility] [address] [place] [address] END OF REPORT
[2019-10-26 09:58] VITALS: BP 158/44
== END 2019-10-26 10:07 | disposition home or self-care (01) | DRG 247 ==
LOC: D.CATH 10:32 → D.M2 19:31 → D.CATH 19:32 → D.M2 10-26 10:07
PROVIDERS: ADMIT Internal Medicine Cardiovascular Disease; ATTEND Internal Medicine Cardiovascular Disease
PROC: 027035Z Dilation of Coronary Artery, One Artery with Two Drug-eluting Intraluminal Devices, Percutaneous Approach (ICD-10-PCS; principal; 2019-10-25 13:00)
DX: I25.110 Atherosclerotic heart disease of native coronary artery with unstable angina pectoris (principal); I10 Essential (primary) hypertension; E03.9 Hypothyroidism, unspecified; E78.5 Hyperlipidemia, unspecified

== ENCOUNTER → 2021-02-21 09:23 | Outpatient (CLI) | payer MEDICARE, BC ==
[~2021-02-21 09:23] MED LIST changes: +FUROSEMIDE20 MG PO; +K-TAB10 MEQ PO
== END | disposition home or self-care (01) ==
LOC: D.HCCECHO 09:23
PROVIDERS: ATTEND Internal Medicine Cardiovascular Disease
DX: I34.0 Nonrheumatic mitral (valve) insufficiency (principal)